=== PATIENT | male | born 1950 | race Caucasian/White ===

== ENCOUNTER 2021-07-20 19:24 | Inpatient (IN) | payer OTHER ==
[2021-07-20 21:17] LABS: Absolute Lymphocytes (CBC) 0.6 K/uL (0.7-4.9); Basophils % 0.6 % (0-1.3); Hematocrit 38.8 % (39.6-49.0); Lymphocytes % 9.9 % (15.3-44.8); MPV 9.2 fL (7.6-11.3); RBC Red Blood Cell Count 4.36 M/uL (4.33-5.43)
[2021-07-20 21:27] LABS: Protime INR 1.26
[2021-07-20 21:31] LABS: SARS-COV-2 RT PCR POSITIVE (NEGATIVE)
[2021-07-20 21:50] LABS: ALT/SGPT 33 U/L (12-78); AST/SGOT 60 U/L (15-37); Albumin 2.5 g/dL (3.4-5.0); Alkaline Phosphatase 38 U/L (45-117); BUN Blood Urea Nitrogen 24 mg/dL (7-18); Bicarbonate 28 mmol/L (21-32); Bilirubin Direct 0.2 mg/dL (0-0.2); Bilirubin Total 0.6 mg/dL (0.2-1.0); Ferritin 1090.6 ng/mL (26-388); Glucose Level 111 mg/dL (74-106); Lipase 51 U/L (73-393); Potassium 3.6 mmol/L (3.5-5.1); Protein, Total 6.7 g/dL (6.4-8.2); Sodium Level 133 mmol/L (136-145); Troponin (Emerg Dept Use Only) < 0.02 ng/mL (0.0-0.045)
[2021-07-20 21:58] LABS: Urine Bacteria <20 /HPF (NONE SEEN); Urine Mucus HEAVY /HPF (NONE SEEN); Urine RBC <5 /HPF (NONE SEEN)
--- NOTE | 2021-07-20 22:13 | EDPHYS ---
Physician Documentation [facility] Name: Roderick Dominguez Age: 71 yrs Sex: Male : 1950 Arrival Date: 07/20/2021 Time: 19:28 Bed 14 Private MD: ED Physician Daquan Pedro HPI: 07/20 20:16 This 71 yrs old Male presents to ER via Wheelchair with complaints of pm1 Breathing Difficulty, Covid positive. 20:16 The patient has shortness of breath at rest. Onset: The symptoms/episode began/occurred pm1 10 day(s) ago. Duration: The symptoms are continuous. The patient's shortness of breath is alleviated by application of supplemental oxygen, given in triage. Associated signs and symptoms: Pertinent positives: non-productive cough, decreased energy, poor appetite and PO intake. Severity of symptoms: in the emergency department the symptoms are worse. The patient has been recently seen by a physician: with similar presenting complaints, Patient was seen by Dr. Astorga yesterday and given remdesivir, but the patient's symptoms have worsened. 20:16 Patient with onset of Covid symptoms 10 days ago. Patient was diagnosed with Covid on pm1 07/17/[address] Martina Astorga and he was given Regeneron at that time. Patient followed up with Dr. Astorga yesterday and reported no improvement in his symptoms and was given remdesvir. Patient monitoring his pulse ox today and reported low O2 saturations. Patient is not on home oxygen. Historical: - Allergies: 19:57 No Known Allergies; kg - Home Meds: 19:57 aspirin 81 mg Oral chew 1 tab once daily [Active]; azithromycin 500 mg Oral tab 1 tab kg once daily [Active]; ivermectin 3 mg oral tab every 4 hours [Active]; Remdesivir [Active]; Simbacort [Active]; - PMHx: 19:57 Atrial fibrillation; Cardioversion- for A-fib; kg - PSHx: 19:57 Mitral valve replacement; kg - Immunization history:: Adult Immunizations not up to date, Client reports having NOT received the Covid vaccine. - Social history:: Smoking status: Patient/guardian denies using tobacco, but has a distant history of tobacco abuse, Patient uses alcohol, on a daily basis. ROS: 20:16 Eyes: Negative for injury, pain, redness, and discharge, ENT: Negative for injury, pm1 pain, and discharge, Neck: Negative for injury, pain, and swelling, Cardiovascular: Negative for chest pain, palpitations, and edema. 20:16 Abdomen/GI: Negative for abdominal pain, nausea, vomiting, diarrhea, and constipation, Back: Negative for injury and pain, MS/Extremity: Negative for injury and deformity, Skin: Negative for injury, rash, and discoloration, Neuro: Negative for headache, weakness, numbness, tingling, and seizure. 20:16 Constitutional: Positive for body aches, fatigue, malaise, poor PO intake. 20:16 Respiratory: Positive for cough, with no reported sputum, shortness of breath. Exam: 20:16 Constitutional: This is a well developed, well nourished patient who is awake, alert, pm1 and in no acute distress. Head/Face: Normocephalic, atraumatic. 20:16 Skin: Warm, dry with normal turgor. Normal color with no rashes, no lesions, and no evidence of cellulitis. MS/ Extremity: Pulses equal, no cyanosis. Neurovascular intact. Full, normal range of motion. 20:16 Eyes: Exam is negative for acute changes, Extraocular movements: no acute changes, Conjunctiva: no acute changes, no injection. 20:16 ENT: Exam is negative for acute changes, Mouth: Lips: normal, Oral mucosa: normal, pink and intact, moist. 20:16 Cardiovascular: Rate: normal, Rhythm: regular, Pulses: no pulse deficits are appreciated. 20:16 Respiratory: the patient does not display signs of respiratory distress, Respirations: normal, Breath sounds: rhonchi, that are mild, are scattered. 20:16 Abdomen/GI: Exam negative for acute changes, Inspection: obese Palpation: abdomen is soft and non-tender, in all quadrants. 20:16 Neuro: Exam negative for acute changes, Orientation: is normal, Mentation: is normal, Motor: is normal, moves all fours, Sensation: is normal, no obvious gross deficits. Vital Signs: 19:49 BP 104 / 67; Pulse 81; Resp 22; Temp 98.2; Pulse Ox 68% on R/A; Weight 99.79 kg (R); kg Height 6 ft. 0 in. (182.88 cm); Pain 0/10; 20:00 BP 115 / 72; Pulse 86; Resp 18; Pulse Ox 90% on 12 lpm NC; jb4 22:06 BP 134 / 73; Pulse 81; Resp 18; Temp 98.2; Pulse Ox 93% ; ds4 07/23 20:00 BP 145 / 77; Pulse 84; Resp 20; Pulse Ox 93% on NC; lh3 07/20 19:49 Body Mass Index 29.84 (99.79 kg, 182.88 cm) kg MDM: 07/20 20:02 Patient medically screened. pm1 21:56 Data reviewed: vital signs. pm1 22:11 Counseling: I had a detailed discussion with the patient and/or guardian regarding: the pm1 historical points, exam findings, and any diagnostic results supporting the discharge/admit diagnosis, lab results, radiology results, the need for further work-up and treatment in the hospital. 07/20 20:00 Order name: BMP pm1 07/20 20:00 Order name: Blood Culture Adult (2) pm1 07/20 20:00 Order name: C-Reactive Protein pm1 07/20 20:00 Order name: CBC with Diff pm1 07/20 20:00 Order name: D-Dimer pm1 07/20 20:00 Order name: Ferritin pm1 07/20 20:00 Order name: Flu pm07/20 20:00 Order name: LFT's pm07/20 20:00 Order name: Lactate pm07/20 20:00 Order name: Lipase pm07/20 20:00 Order name: PT-INR pm07/20 20:00 Order name: Procalcitonin pm07/20 20:00 Order name: Ptt, Activated pm07/20 20:00 Order name: Strep pm07/20 20:00 Order name: Troponin (emerg Dept Use Only); Complete Time: 21:55 pm1 07/20 20:00 Order name: Urine Microscopic Only; Complete Time: 22:01 pm1 07/20 20:00 Order name: Basic Metabolic Panel; Complete Time: 21:55 EDMS 07/20 20:00 Order name: Blood Culture EDMI 07/20 20:00 Order name: C-Reactive Protein; Complete Time: 21:55 EDMS 07/20 20:00 Order name: CBC with Automated Diff; Complete Time: 21:43 EDMS 07/20 20:00 Order name: D-Dimer; Complete Time: 21:43 EDMS 07/20 20:01 Order name: Ferritin; Complete Time: 21:55 EDMS 07/20 20:01 Order name: Liver (Hepatic) Function; Complete Time: 21:55 EDMS 07/20 20:01 Order name: Lactate; Complete Time: 22:44 EDMS 07/20 20:01 Order name: Lipase; Complete Time: 21:55 EDMS 07/20 20:01 Order name: Protime (+INR); Complete Time: 21:43 EDMS 07/20 20:01 Order name: Procalcitonin; Complete Time: 22:38 EDMS 07/20 20:01 Order name: PTT, Activated Partial Thromb; Complete Time: 21:43 EDMS 07/20 20:01 Order name: Group A Streptococcus Rapid Sc; Complete Time: 00:33 EDMS 07/20 20:00 Order name: CXR XRAY pm1 07/20 20:00 Order name: EKG; Complete Time: 20:01 pm1 07/20 20:00 Order name: Cardiac monitoring; Complete Time: 20:34 pm1 07/20 20:00 Order name: Droplet/Contact Precautions; Complete Time: 20:34 pm1 08 20:00 Order name: EKG - Nurse/Tech; Complete Time: 21:06 pm1 08 20:00 Order name: IV Start; Complete Time: 20:34 pm1 08 20:00 Order name: Labs collected and sent; Complete Time: 20:34 pm1 07/20 20:00 Order name: O2 Per Protocol; Complete Time: 20:34 pm1 07/20 20:00 Order name: O2 Sat Monitoring; Complete Time: 20:34 pm1 07/20 20:00 Order name: Urine Dipstick-Ancillary (obtain specimen); Complete Time: 21:31 pm1 07/20 21:31 Order name: COVID-19/FLU A+B; Complete Time: 21:43 EDMS 07/20 23:41 Order name: CONS Physician Consult EDMS 07/21 03:02 Order name: CBC with Automated Diff EDMS 07/21 03:15 Order name: Comprehensive Metabolic Panel EDMS 07/21 03:15 Order name: Phosphorus EDMS 07/21 03:15 Order name: C-Reactive Protein EDMS 07/21 03:15 Order name: Magnesium EDMS 07/21 03:15 Order name: Ferritin EDMS 07/21 03:16 Order name: Procalcitonin EDMS 07/21 04:32 Order name: Manual Differential EDMS 07/22 03:09 Order name: CBC with Automated Diff EDMS 07/22 03:28 Order name: Basic Metabolic Panel EDMS 07/22 07:53 Order name: Throat Culture EDMS 07/23 03:00 Order name: CBC with Automated Diff EDMS 07/23 03:03 Order name: Basic Metabolic Panel EDMS 07/23 14:09 Order name: Urine Dipstick-Ancillary EDMS Administered Medications: 22:38 Drug: SOLU-Medrol (methylPrednisoLONE) 125 mg Route: IVP; Site: left antecubital; jb4 23:15 Follow up: Response: No adverse reaction jb4 22:38 Drug: NS 0.9% 500 ml Route: IV; Rate: bolus; Site: left antecubital; jb4 23:15 Follow up: Response: No adverse reaction; IV Status: Completed infusion; IV Intake: jb4 500ml Disposition Summary: 07/20/21 22:12 Hospitalization Ordered Hospitalization Status: Inpatient Admission pm1 Provider: Ollie Lozano pm1 Condition: Stable pm1 Problem: new pm1 Symptoms: have improved pm1 Bed/Room Type: Standard pm1 Location: Intensive Care Unit(07/23/21 17:36) dw Room Assignment: 6-(07/23/21 17:36) dw Diagnosis - Pneumonia due to SARS-associated coronavirus pm1 - Hypoxia pm1 Forms: - Medication Reconciliation Form pm1 - SBAR form pm1 Signatures: Dispatcher [employer] EDMS Annetta Regalado RN RN dw Garcia, Cindy, RN RN cg Hardy Lowery, LUIS ANTONIO PATIENT DAY COORDINATOR pm1 Feng Valentino RN RN jb4 Lana Keenan RN RN kg Corrections: (The following items were deleted from the chart) 20:43 20:01 Influenza Screen (A ordered. EDMI EDMI 22:49 22:12 Telemetry/MedSurg (Inpatient) pm1 cg 22:49 22:12 pm1 cg 23:13 20:00 Ledesma ordered. pm1 jb4 07/23 22:49 BR ER HOLD cg dw 07/23 22:49 ERHOLD- cg dw
--- NOTE | 2021-07-20 22:13 | ER ---
Nurse's Notes [facility] Name: Roderick Dominguez Age: 71 yrs Sex: Male : 1950 Arrival Date: 07/20/2021 Time: 19:28 Bed 14 Private MD: Diagnosis: Pneumonia due to SARS-associated coronavirus;Hypoxia Presentation: 07/20 19:49 Chief complaint: Patient states: Low 02. 68% on RA in triage. Pt was diagnosed COVID + kg 07/16. He received Regeneron on 07/17, Remdesivir he started on 07/19, Azithromycin 07/19, Ivermectin 07/19, Simbacort 07/19. Coronavirus screen: Client denies travel out of the [place] in the last 14 days. At this time, unable to obtain information related to travel outside the [place] Client presents with at least one sign or symptom that may indicate coronavirus-19. Standard/surgical mask placed on the client. Provider contacted for isolation considerations. Ebola Screen: Patient negative for fever greater than or equal to 101.5 degrees Fahrenheit, and additional compatible Ebola Virus Disease symptoms Patient denies exposure to infectious person. Patient denies travel to an Ebola-affected area in the 21 days before illness onset. Initial Sepsis Screen: Does the patient meet any 2 criteria? No. Patient's initial sepsis screen is negative. Does the patient have a suspected source of infection? No. Patient's initial sepsis screen is negative. Risk Assessment: Do you want to hurt yourself or someone else? Patient reports no desire to harm self or others. Onset of symptoms was July 16, 2021. 19:49 Method Of Arrival: Wheelchair kg 19:49 Acuity: KEEGAN 3 kg Triage Assessment: 19:57 General: Appears in no apparent distress. Behavior is calm, cooperative, appropriate kg for age, quiet. Pain: Denies pain. Respiratory: Reports shortness of breath at rest on exertion since 07/16 cough that is non-productive, Onset: The symptoms/episode began/occurred gradually, the patient has moderate shortness of breath. Historical: - Allergies: 19:57 No Known Allergies; kg - Home Meds: 19:57 aspirin 81 mg Oral chew 1 tab once daily [Active]; azithromycin 500 mg Oral tab 1 tab kg once daily [Active]; ivermectin 3 mg oral tab every 4 hours [Active]; Remdesivir [Active]; Simbacort [Active]; - PMHx: 19:57 Atrial fibrillation; Cardioversion- for A-fib; kg - PSHx: 19:57 Mitral valve replacement; kg - Immunization history:: Adult Immunizations not up to date, Client reports having NOT received the Covid vaccine. - Social history:: Smoking status: Patient/guardian denies using tobacco, but has a distant history of tobacco abuse, Patient uses alcohol, on a daily basis. Screenin:03 Abuse screen: Denies threats or abuse. Denies injuries from another. Nutritional kg screening: No deficits noted. Tuberculosis screening: No symptoms or risk factors identified. Fall Risk None identified. Assessment: 20:00 General: Appears in no apparent distress. comfortable, Behavior is calm, cooperative, jb4 appropriate for age. Pain: Denies pain. Neuro: Level of Consciousness is awake, alert, obeys commands, Oriented to person, place, time, situation. Cardiovascular: Patient's skin is warm and dry. Respiratory: Airway is patent Respiratory effort is even, unlabored, Respiratory pattern is regular, symmetrical, Breath sounds are clear bilaterally. GI: No signs and/or symptoms were reported involving the gastrointestinal system. : No signs and/or symptoms were reported regarding the genitourinary system. EENT: No signs and/or symptoms were reported regarding the EENT system. Derm: Skin is intact, Skin is pink, warm \T\ dry. Musculoskeletal: Circulation, motion, and sensation intact. Range of motion: intact in all extremities. 21:00 Reassessment: Patient appears in no apparent distress at this time. Patient and/or jb4 family updated on plan of care and expected duration. Pain level reassessed. Patient is alert, oriented x 3, equal unlabored respirations, skin warm/dry/pink. 22:00 Reassessment: Patient appears in no apparent distress at this time. Patient and/or jb4 family updated on plan of care and expected duration. Pain level reassessed. Patient is alert, oriented x 3, equal unlabored respirations, skin warm/dry/pink. Vital Signs: 19:49 BP 104 / 67; Pulse 81; Resp 22; Temp 98.2; Pulse Ox 68% on R/A; Weight 99.79 kg (R); kg Height 6 ft. 0 in. (182.88 cm); Pain 0/10; 20:00 BP 115 / 72; Pulse 86; Resp 18; Pulse Ox 90% on 12 lpm NC; jb4 22:06 BP 134 / 73; Pulse 81; Resp 18; Temp 98.2; Pulse Ox 93% ; ds4 07/23 20:00 BP 145 / 77; Pulse 84; Resp 20; Pulse Ox 93% on NC; lh3 07/20 19:49 Body Mass Index 29.84 (99.79 kg, 182.88 cm) kg ED Course: 07/20 19:28 Patient arrived in ED. wm 19:51 Hardy Lowery NP is PHCP. pm1 19:51 Daquan Pedro MD is Attending Physician. pm1 19:57 Triage completed. kg 19:57 Arm band placed on. kg 20:03 Patient has correct armband on for positive identification. kg 20:13 Meg Mojica, RN is Primary Nurse. bs2 20:32 CXR XRAY In Process Unspecified. EDMS 22:12 Zander Lozano DO is Hospitalizing Provider. pm1 22:12 Hospitalizing Provider role handed off by Zander Lozano DO pm1 22:12 Ollie Lozano PA is Hospitalizing Provider. pm1 22:25 Feng Valentino, MIRANDA is Primary Nurse. jb4 07/23 20:40 No provider procedures requiring assistance completed. Inserted saline lock: 20 gauge lh3 in right forearm, using aseptic technique. Administered Medications: 07/20 22:38 Drug: SOLU-Medrol (methylPrednisoLONE) 125 mg Route: IVP; Site: left antecubital; jb4 23:15 Follow up: Response: No adverse reaction jb4 22:38 Drug: NS 0.9% 500 ml Route: IV; Rate: bolus; Site: left antecubital; jb4 23:15 Follow up: Response: No adverse reaction; IV Status: Completed infusion; IV Intake: jb4 500ml Intake: 23:15 IV: 500ml; Total: 500ml. jb4 Outcome: 22:12 Decision to Hospitalize by Provider. pm1 07/23 20:40 Admitted to ICU accompanied by nurse, via wheelchair, room 6, with oxygen, with chart. lh3 critical Instructed on the need for admit, Demonstrated understanding of 20:42 Patient left the ED. lh3 Signatures: Dispatcher [employer] EDMS Filippo Chua ds4 Hardy Lowery, LUIS ANTONIO GAME ADVISOR pm1 Feng Valentino, RN RN jb4 Lana Keenan, MIRANDA RN Ariana Schwab Bridget, RN RN bs2 Dayami Salmeron RN RN lh3
[2021-07-20] MEDS ORDERED: NA CHLORIDE 0.9% 500 ML ONE (22:54)
[2021-07-20] MEDS ORDERED: METHYLPREDNISOLONE 125 MG INJ ONE (22:54)
--- OUTSIDE RECORDS SUMMARY | 2021-07-20 22:57 | XMS REPORT | Continuity of Care Document ---
:1950 Author Organization [facility] t Address [address] [place] [address] Care Team Providers Name Role Phone CALMO Attending Clinician Unavailable Amrik Gonzalez Attending Clinician BRIGITTE Attending Clinician Unavailable Jordi Briggs Attending Clinician Nirmala Schuster Attending Clinician James Luque Attending Clinician Rula Goff Attending Clinician Problems Condition Condition Condition Status Onset Resolution Last Treating Co mments Source Name Details Category Date Date Treatment Clinician Date Z87.891 - Diagnosis Active 2019-112020-11-07 Memoria PERSONAL 01-04 08:24:00 l HISTORY OF Z87.891 00:01: Her feng NICOTINE D - PERSONAL 00 HISTORY OF NICOTINE D Active 11/03/2020 [facility] [place] LEFT LEG Diagnosis Active 2017-112019-02-20 M emoria 0-15 16:31:00 l LEFT LEG 08:00: Javier n 00 Active 09/11/2018 [facility] LEFT LEG Diagnosis Active 2017-112018-10-12 M emoria SX 0-15 16:21:00 l 09/11/18 LEFT LEG 08:00: Herm loco SX 00 09/11/18 Active 09/11/2018 [facility] M25.569 Diagnosis Active 2017-112018-09-05 Me moria 0-09 13:20:00 l M25.569 00:00: Miguelito 00 Active 09/05/[address] Diagnosis Active 2017-112018-10-03 Mem oria REFERRAL 0-03 21:15:[address] 00:00: Carmine REFERRAL 00 Active 08/30/2018 [facility] Miguelito R09.89 - Diagnosis Active 2018-04-27 M emoria OTH 04-27 17:11:00 l SYMPTOMS R09.89 - 00:01: Herm loco AND SIGNS OTH 00 INVOLVI SYMPTOMS AND SIGNS INVOLVI Active 04/27/2018 [facility] [place] V43.31 Diagnosis Active 2013-112014-11-30 Mem oria - 16:25:00 l V43.31 00:00: Carmine 00 Active 10/15/2014 [facility] V43.3 Diagnosis Active 2015-02-27 Mem oria 424.1 08:07:00 l 786.09 V43.3 Miguelito 427.31 424.1 786.09 427.31 Active [facility] HEART Diagnosis Active 2015-02-27 Mem oria VALVE 08:07:00 l REPLAC NEC HEART Simran nn VALVE REPLAC NEC Active [facility] V43.3 Diagnosis Active 2015-01-29 Mem oria 424.1 08:13:00 l 786.09 V43.3 Carmine 424.1 786.09 Active [facility] Strain of Problem 2019-03-25 Me moria right 14:42:09 l quadriceps Strain Boogie adan muscle, of right fascia and quadriceps tendon, muscle, initial fascia and encounter tendon, initial encounter 03/25/2019 [facility] Other tear Problem 2019-03-25 emoria of lateral 14:42:09 l meniscus, Other Javier n current tear of injury, lateral left knee, meniscus, initial current encounter injury, left knee, initial encounter 03/25/2019 [facility] Unilateral Problem 2019-03-25 M emoria primary 14:42:09 l osteoarthr Javier n itis, Unilateral right knee primary osteoarthr itis, right knee 03/25/2019 [facility] Chondromal Problem 2019-03-25 M emoria acia 14:42:09 l patellae, Miguelito left knee Chondromal acia patellae, left knee 03/25/2019 [facility] Fall (on) Problem 2019-03-19 Me moria (from) 15:35:50 l unspecifie Fall Javier perdomo d stairs (on) and steps, (from) initial unspecifie encounter d stairs and steps, initial encounter 03/19/2019 [place] intermediate card tender Problem 2019-03-19 Me moria (current) 15:35:50 l use of Long Carmine aspirin term (current) use of aspirin 03/19/2019 [place] Personal Problem 2019-03-19 Mem oria history of 15:35:50 l nicotine Personal Herm loco dependence history of nicotine dependence 03/19/2019 [place],[facility] Carm[place] Presence Problem 2019-03-19 Mem oria of 15:35:50 l xenogenic Presence Her feng heart of valve xenogenic heart valve 03/19/2019 [facility] Other Problem 2019-02-18 Memor ia nonspecifi 12:22:40 l c abnormal Other Simran nn finding of nonspecifi lung field c abnormal finding of lung field 02/18/2019 [facility] [place] 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 [place] 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 02/18/2019 [facility] [place] Presence Problem 2019-02-18 Mem oria of 12:22:40 l prosthetic Presence He rmann heart of valve prosthetic heart valve 02/18/2019 [facility] [place] Encounter Problem 2019-02-18 Me moria for 12:22:40 l screening Carmine for Encounter malignant for neoplasm screening of for respirator malignant y organs neoplasm of respirator y organs 02/18/2019 [facility] [place] Ex-smoker Problem Active 2019-07-03 Me moria (finding) 11:38:40 l Carmine Ex-smoker (finding) Active Problem 07/03/2019 [facility] JAY Farley,[facility] Bilateral Problem Active 2021-06-03 Me moria cataracts 21:27:06 l (disorder) Javier n Bilateral cataracts (disorder) Active Problem 06/03/2021 [facility], [facility] JAY Farley, JAY Lund,M [facility] Cervical Problem Active 2021-06-03 Mem oria radiculopa 21:27:06 l thy Cervical Javier n (disorder) radiculopa thy (disorder) Active Problem 06/03/2021 [facility] JAY Farley, JAY [place],[facility] Glaucoma Problem Active 2021-06-03 Mem oria suspect 21:27:06 l (context-d Glaucoma He rmann ependent suspect category) (context-d ependent category) Active Problem 06/03/2021 [facility] JAY Farley, JAY [place],[facility] History of Problem Active 2021-06-03 M emoria - atrial 21:27:06 l fibrillati History Her feng on of - (context-d atrial ependent fibrillati category) on (context-d ependent category) Active Problem 06/03/2021 [facility] JAY Farley, JAY [place],[facility] History of Problem Active 2021-06-03 M emoria - surgery 21:27:06 l (context-d History Her feng ependent of - category) surgery (context-d ependent category) Active Problem 06/03/2021 [facility], JAY [place],[facility] History of Problem Active 2021-06-03 M emoria aortic 21:27:06 l valve History Carmine replacemen of aortic t valve (situation replacemen ) t (situation ) Active Problem 06/03/2021 [facility] JAY aFrley, JAY [place],[facility] History of Problem Active 2021-06-03 M emoria malignant 21:27:06 l neoplasm History Simran nn of skin of (situation malignant ) neoplasm of skin (situation ) Active Problem 06/03/2021 [facility] JAY Farley, JAY [place],[facility] History of Problem Active 2021-06-03 M emoria polyp of 21:27:06 l colon History Miguelito (situation of polyp ) of colon (situation ) Active Problem 06/03/2021 [facility] JAY Farley, JAY [place],[facility] Mild Problem Active 2021-06-03 Memor ia chronic 21:27:06 l obstructiv Mild Javier n e chronic pulmonary obstructiv disease e (disorder) pulmonary disease (disorder) Active Problem 06/03/2021 [facility], [place],[facility] JAY Farley, JAY Lund,[facility] Patient Problem Active 2021-06-03 Andry harvey encounter 21:27:06 l status Patient Carmine (finding) encounter status (finding) Active Problem 06/03/2021 [facility], JAY [place],[facility] Prediabete Problem Active 2021-06-03 M emoria s 21:27:06 l (finding) Carmine Prediabete s (finding) Active Problem 06/03/2021 [facility], JAY [place],[facility] Screening Problem Active 2021-06-03 Me moria status 21:27:06 l (finding) Miguelito Screening status (finding) Active Problem 06/03/2021 [facility], [place],[facility] JAY Farley, JAY Lund,[facility] Subjective Problem Active 2021-06-03 M emoria carotid 21:27:06 l bruit Miguelito (finding) Subjective carotid bruit (finding) Active Problem 06/03/2021 [facility], [place],M JAY Farley, JAY Lund,[facility] Ex-cigaret Problem Active 2021-06-03 M emoria te smoker 21:27:06 l (finding) Miguelito Ex-cigaret te smoker (finding) Active Problem 06/03/2021 [facility], JAY [place] Hyperchole Problem Active 2021-06-03 M emoria sterolemia 21:27:06 l (disorder) Javier n Hyperchole sterolemia (disorder) Active Problem 06/03/2021 [facility], J[facility] [place] Knee pain Knee pain Problem Active [facility] [place] [facility] Viral Problem Active 2019-11-06 Memor ia screening 22:11:38 l status Viral Miguelito (finding) screening status (finding) Active Problem 11/06/2019 [facility], JAY [place] Strain of Problem Active 2019-07-03 Me moria quadriceps 11:38:40 l tendon Strain Carmine (disorder) of quadriceps tendon (disorder) Active Problem 07/03/2019 [facility] Edema of Problem Active 2019-03-25 Mem oria lower 14:42:09 l extremity Edema of Her feng (finding) lower extremity (finding) Active Problem 03/25/2019 [facility], Romulo Lund,[facility] Knee joint Problem Active 2019-03-25 M emoria effusion 14:42:09 l (disorder) Knee Javier n joint effusion (disorder) Active Problem 03/25/2019 [facility], Romulo Lund,[facility] Knee pain Problem Active 2019-03-25 Me moria (finding) 14:42:09 l Knee Miguelito pain (finding) Active Problem 03/25/2019 [facility], [place],[facility] Medical Problem Active 2019-03-25 Andry harvey examinatio 14:42:09 l ns/reports Medical Her feng status examinatio (finding) ns/reports status (finding) Active Problem 03/25/2019 [facility], Romulo Lund,[facility] Dyspnea on Problem Active 2021-06-03 M emoria exertion 21:27:06 l (finding) Dyspnea Herm loco on exertion (finding) Active Problem 06/03/2021 [facility], JAY [place] Immunizati Problem Active 2021-06-03 M emoria on due 21:27:06 l (finding) Carmine Immunizati on due (finding) [facility] [place] Multiple Problem Active 2021-06-03 Mem oria nodules of 21:27:06 l lung Multiple Javier n (finding) nodules of lung (finding) Active [facility]03/[facility] [place] Onychomyco Problem Active 2021-06-03 M emoria sis 21:27:06 l (disorder) Javier n Onychomyco sis (disorder) Active Problem 06/03/2021 [facility], [facility] [place] Wrist pain Wrist pain Problem Active [facility] [place] [facility] Pulmonary Problem Active 2019-11-06 Me moria emphysema 22:11:38 l (disorder) Javier perdomo Pulmonary emphysema (disorder) Active Problem 11/06/2019 [facility] Rupture of Rupture of Problem Active [facility] left left ity of quadriceps quadriceps [place] tendon, tendon, Physici initial initial ans encounter encounter History of Past Illness Condition Condition Condition Status Onset Resolution Last Treating Co mments Source Name Details Category Date Date Treatment Clinician Date Strain of Problem 2018-2019-07-03 2019-07-03 Memoria left 1- 11:38:40 11:38:40 l quadriceps Strain 04:11: Boogie adan muscle, of left 57 fascia and quadriceps tendon, muscle, subsequent fascia and encounter tendon, subsequent encounter 12/17/2018 07/03/2019 [facility] Pain in Problem 2017-112019-03-25 2019-03-25 Memoria left knee 0-13 14:42:09 14:42:09 l Pain in 03:37: Miguelito left knee 22 09/09/2018 03/25/2019 [facility] Contusion Problem 2017-112019-03-19 2019-03-19 Memoria of left 0-03 15:35:50 15:35:50 l thigh, 05:00: Miguelito initial Contusion 00 encounter of left thigh, initial encounter 08/30/2018 03/19/2019 [facility] Strain of Problem 2017-112019-03-19 2019-03-19 Memoria unspecifie 0-03 15:35:50 15:35:50 l d Strain 05:00: Miguelito quadriceps of 00 muscle, unspecifie fascia and d tendon, quadriceps initial muscle, encounter fascia and tendon, initial encounter 08/30/2018 03/19/2019 [facility] Allergies, Adverse Reactions, Alerts Allergy Allergy Status Severity Reaction(s) Onset Inactive Treating Comm ents Source Name Type Date Date Clinician Food Food Active Memoria Lactose Lactose l Intolera Intolera Javier perdomo nce nce (Restric (Restric ts ts Milk/Mil Milk/Mil k k Products Products ) ) Social History Social Habit Start Date Stop Date Quantity Comments Source Social History 2018-04-20 2018-04-20 Belinda antonio 15:42:00 15:42:00 Medications Ordered Filled Start Stop Current Ordering Indication Dosage Frequency Signature Comments Components Source Medication Medication Date Date Medication? Clinician (SIG) Name Name ciclopirox Yes 1 appl, Andry harvey 80 MG/ML 6- TOP, l Topical 17:03: Daily, X Javier n Solution 00 48 week, # [Penlac 9.9 ml, 11 Nail Refill(s), Lacquer] Pharmacy: [facility] #[id number], 182.88, cm, 05/15/20 10:33:00 CDT, Height, 100.653, kg, 05/15/20 10:33:00 CDT, Weight ciclopirox Yes 1 appl, Andry harvey 80 MG/ML 6- TOP, l Topical 01:27: Daily, X Javier n Solution 00 48 week, # [Penlac 9.9 ml, 11 Nail Refill(s), Lacquer] Pharmacy: [facility] #[id number], 182.88, cm, 05/15/20 10:33:00 CDT, Height, 100.653, kg, 05/15/20 10:33:00 CDT, Weight Cyclobenzap Cyclobenzap Yes NOEL BRIGITTE Q0.3333D TAKE 1 Univers rine HCl - rine HCl - 4-02 M.D. TABLET 3 ity of 10 MG Oral 10 MG Oral 00:00: TIMES [place] Tablet Tablet 00 DAILY Physici NEEDED. ans Cyclobenzap Cyclobenzap 2017-11 Yes NOEL BRIGITTE 1 Q0.3333D TAKE 1 Univers rine HCl - rine HCl - 2-11 M.D. TABLET 3 ity of 10 MG Oral 10 MG Oral 00:00: TIMES [place] Tablet Tablet 00 DAILY PRN Physic i muscle ans spasms Saline 2017-11 No Notes: Memoria Flush 0.9% 0-03 (Same as: l 21:30: BD Carmine 00 Posiflush) Acetaminoph 2017-11 No 1 tab, PO, Memoria en 300 MG / 0-03 Q4H, PRN l Codeine 19:12: Pain, X 7 Simran nn Phosphate 00 day, # 42 15 MG Oral tab, 0 Tablet Refill(s) Acetaminoph No 1 -2 tab, M emoria en 300 MG / 9-27 PO, l Codeine 20:16: Bedtime, Javier n Phosphate 00 As needed 30 MG Oral for pain, Tablet X 3 day, # [Tylenol 6 tab, 0 with Refill(s) Codeine #3] Aspirin 81 2018-0 Yes 81 mg = 1 Me moria MG Enteric 5-24 tab, PO, l Coated 15:26: Daily, # Carmine Tablet 00 90 tab, 3 Refill(s) Immunizations Ordered Immunization Filled Immunization Date Status Commen ts Source Name Name pneumococcal 2017-01-10 Completed [facility] 23-valent vaccine 00:00:00 Carmine pneumococcal 2017-01-10 Completed [facility] 13-valent vaccine 00:00:00 Carmine pneumococcal 2016-01-05 Completed [facility] 13-valent vaccine 00:00:00 Carmine pneumococcal 2016-01-05 Completed [facility] 23-valent vaccine 00:00:00 Miguelito zoster vaccine live 2014-01-01 Completed Memor ial 00:00:00 Carmine tetanus-diphtheria 2012-12-25 Completed Memori al toxoids 00:00:00 Miguelito diphtheria/pertussis 2012-12-25 Completed Andry rial , acel/tetanus adult 00:00:00 Herm loco Vital Signs Vital Name Observation Time Observation Value Comments Source Height 2021-05-27 14:47:00 182.88 cm [facility] Weight 2021-05-27 14:47:00 [facility] BMI Calculated 2021-05-27 14:47:00 Memori al Miguelito Systolic (mm Hg) 2021-05-27 14:47:00 Andry rial Carmine Diastolic (mm Hg) 2021-05-27 14:47:00 Mem orial Miguelito Heart Rate 2021-05-27 14:47:00 [facility] Carmine Systolic (mm Hg) 2020-05-15 15:33:00 Andry rial Miguelito Diastolic (mm Hg) 2020-05-15 15:33:00 Mem orial Miguelito Heart Rate 2020-05-15 15:33:00 [facility] Miguelito Temperature Oral (F) 2020-05-15 15:33:00 98.5 F [facility] Height 2020-05-15 15:33:[address] [facility] Weight 2020-05-15 15:33:00 [facility] Miguelito BMI Calculated 2020-05-15 15:33:00 Memori al Carmine Systolic (mm Hg) 2019-10-18 20:32:00 Andry rial Carmine Diastolic (mm Hg) 2019-10-18 20:32:00 Mem orial Miguelito Heart Rate 2019-10-18 20:32:00 [facility] Carmine Temperature Oral (F) 2019-10-18 20:32:00 98.2 F [facility] Miguelito Height 2019-04-20 19:17:00 182.88 cm [facility] Carmine BMI Calculated 2019-04-20 19:17:00 Memori al Miguelito Weight 2019-04-20 19:17:00 [facility] Miguelito Systolic (mm Hg) 2019-04-20 19:17:00 Andry rial Miguelito Diastolic (mm Hg) 2019-04-20 19:17:00 Mem orial Miguelito Temperature Oral (F) 2019-04-20 19:17:00 98.0 F [facility] Carmine Heart Rate 2019-04-20 19:17:00 [facility] Miguelito Heart Rate 2018-08-31 01:21:00 [facility] Miguelito Respitory Rate 2018-08-31 01:21:00 Memori al Miguelito Systolic (mm Hg) 2018-08-31 01:21:00 Andry rial Carmine Diastolic (mm Hg) 2018-08-31 01:21:00 Mem orial Miguelito Temperature Oral (F) 2018-08-31 01:21:00 98.0 F [facility] Carmine Temperature Oral (F) 2018-08-30 23:02:00 97.8 F [facility] Carmine Heart Rate 2018-08-30 23:02:00 [facility] Carmine Respitory Rate 2018-08-30 23:02:00 Memori al Carmine BMI Calculated 2018-08-30 19:58:00 Memori al Miguelito Weight 2018-08-30 19:58:00 [facility] Carmine Temperature Oral (F) 2018-08-30 19:58:00 98.1 F [facility] Miguelito Height 2018-08-30 19:58:00 182.88 cm [facility] Miguelito Respitory Rate 2018-08-30 19:58:00 Memori al Carmine Heart Rate 2018-08-30 19:58:00 [facility] Carmine Systolic (mm Hg) 2018-08-30 19:58:00 Andry rial Carmine Diastolic (mm Hg) 2018-08-30 19:58:00 Mem orial Carmine BMI Calculated 2018-08-30 18:15:00 Memori al Carmine Weight 2018-08-30 18:15:00 [facility] Carmine Height 2018-08-30 18:15:00 182.88 cm [facility] Miguelito Systolic (mm Hg) 2018-08-30 18:15:00 Andry rial Miguelito Diastolic (mm Hg) 2018-08-30 18:15:00 Mem orial Miguelito Heart Rate 2018-08-30 18:15:00 [facility] Miguelito Temperature Oral (F) 2018-08-30 18:15:00 98.5 F [facility] Miguelito Height 2018-08-24 18:57:00 182.88 cm [facility] Carmine BMI Calculated 2018-08-24 18:57:00 Memori al Miguelito Weight 2018-08-24 18:57:00 [facility] Miguelito Heart Rate 2018-08-24 18:57:00 [facility] Carmine Temperature Oral (F) 2018-08-24 18:57:00 97.9 F [facility] Miguelito Systolic (mm Hg) 2018-08-24 18:57:00 Andry rial Carmine Diastolic (mm Hg) 2018-08-24 18:57:00 Mem orial Miguelito Temperature Oral (F) 2018-04-20 15:21:00 97.8 F [facility] Miguelito Heart Rate 2018-04-20 15:21:00 [facility] Miguelito Systolic (mm Hg) 2018-04-20 15:21:00 Andry rial Carmine Diastolic (mm Hg) 2018-04-20 15:21:00 Mem orial Miguelito BMI Calculated 2018-04-20 15:21:00 Memori al Miguelito Weight 2018-04-20 15:21:00 [facility] Carmine Height 2018-04-20 15:21:00 182.88 cm [facility] Carmine Height 2015-02-27 14:25:00 182.88 cm [facility] Carmine BMI Calculated 2015-02-27 14:25:00 Memori al Miguelito Weight 2015-02-27 14:25:00 [facility] Miguelito Weight 2015-01-29 18:39:00 [facility] Carmine Height 2015-01-29 18:39:00 182.88 cm [facility] Miguelito BMI Calculated 2015-01-29 18:39:00 Memori al Miguelito Height 2014-12-31 17:12:00 182.88 cm [facility] Carmine BMI Calculated 2014-12-31 17:12:00 Memori al Carmine Weight 2014-12-31 17:12:00 [facility] Carmine BMI Calculated 2014-12-03 16:21:00 Memori al Miguelito Weight 2014-12-03 16:21:00 [facility] Miguelito Height 2014-12-03 16:21:00 182.88 cm [facility] Miguelito BMI Calculated 2014-10-29 14:58:00 Memori al M[place]ul[place] Weight 2014-10-29 14:58:00 [facility] Miguelito Height 2014-10-29 14:58:00 182.88 cm [facility] Miguelito Procedures Procedure Date / Time Performing Clinician Source Performed [U] XRAY KNEE 1 OR 2 VWS 2018-09-15 00:00:00 [facility] LEFT [id number] Physicians MR Knee wo contrast 2018-09-05 00:00:00 [facility] [id number] Physicians Colonoscopy 2016-08-09 05:00:00 [facility] Aortic valve replacement 2014-09-09 05:00:00 Mem orial Miguelito and replacement of ascending aorta Miscellaneous [facility] operations<sup>1</sup> Encounters Start End Encounter Admission Attending Care Care Encounter Source Date/Time Date/Time Type Type Clinicians Facility Department ID 2021-06-30 2021-06-30 Outpatient CALSC CARRIE MELGOZA [id number] Carrie 00:00:00 00:00:00 Seybol d 2021-05-31 2021-06-01 Between nullFlavo [facility] [id number] Memoria 16:55:23 16:55:23 Visit r Primary 16 l [facility] 2021-05-31 2021-06-01 Outpatient [facility] [id number] 11:55:23 11:55:23 16 2021-05-27 2021-05-28 Outpatient nullFlavo [facility] [id number] Memoria 14:45:00 04:59:59 r Primary 06 l [facility] 2021-05-27 2021-05-27 Outpatient Chris Gonzalez [facility] [id number] 09:45:00 23:59:59 Amrik 06 2021-05-27 2021-05-27 Outpatient [facility] [id number] Memoria 09:45:00 09:45:00 06 [facility] 2020-11-10 2020-11-11 Between nullFlavo [facility] [id number] Memoria 16:32:56 16:32:56 Visit r Primary 15 l [facility] 2020-11-10 2020-11-11 Outpatient [facility] [id number] 10:32:56 10:32:56 15 2020-11-07 2020-11-08 [place] [id number] Memoria 14:14:00 05:59:00 Services r Outpatient [address] [facility] 2020-11-07 2020-11-07 Outpatient Carlos, Chris [facility] [id number] 08:14:00 23:59:00 2020-07-01 2020-07-01 Appointcharlee BRIGGS [facility] Orthopedics [id number] Univers 16:30:00 16:30:00 t; NOEL BRIGGS M.D. [facility] Mike COHEN [facility] 2020-05-19 2020-05-20 Between nullFlavo [facility] [id number] Memoria 01:10:11 01:10:11 Visit r Primary 14 l [facility] 2020-05-19 2020-05-20 Between nullFlavo [facility] [id number] Memoria 01:09:27 01:09:27 Visit r Primary 13 l [facility] 2020-05-18 2020-05-19 Outpatient [facility] [id number] 20:10:11 20:10:11 14 2020-05-18 2020-05-19 Outpatient [facility] [id number] 20:09:27 20:09:27 13 2020-05-15 2020-05-16 Outpatient nullFlavo [facility] [id number] Memoria 14:45:00 04:59:59 r Primary 05 l [facility] 2020-05-15 2020-05-15 Outpatient Carlos, Chris [facility] [id number] 09:45:00 23:59:59 2020-05-15 2020-05-15 Outpatient MHIE [facility] [id number] Memoria 09:45:00 09:45:00 05 [facility] 2019-11-03 2019-11-04 Between nullFlavo MG [id number] Memoria 14:56:22 14:56:22 Visit r Primary 12 l [facility] 2019-11-03 2019-11-04 Outpatient [facility] MG [id number] 08:56:22 08:56:22 12 2019-10-30 2019-10-31 Outpt Diag nullFlavo [facility] [id number] Memoria 16:05:00 05:59:00 Services r Outpatient 02 l Imaging [facility] 2019-10-30 2019-10-30 Outpatient Carlos, Chris [facility] [id number] 10:05:00 23:59:00 Amrik 2019-10-20 2019-10-21 Between nullFlavo MG [id number] Memoria 20:40:37 20:40:37 Visit r Primary 11 l [facility] 2019-10-20 2019-10-21 Outpatient MG MG [id number] 14:40:37 14:40:37 2019-10-18 2019-10-19 [place] [id number] Memoria 20:30:00 05:59:59 r Primary 04 l [facility] 2019-10-18 2019-10-18 Outpatient Chris Gonzalez [facility] [id number] 14:30:00 23:59:59 2019-10-18 2019-10-18 Outpatient MHIE IE [id number] Memoria 14:30:00 14:30:00 04 [facility] 2019-07-03 2019-07-03 AppointALMITA [facility] [id number] [facility] 13:15:00 13:15:00 t; NOEL BRIGGS M.D. - [place] Lakia M.D. [place] [facility] 2019-05-01 2019-05-01 ALMITA [facility] [id number] [facility] 11:30:00 11:30:00 t; NOEL BRIGGS M.D. - [place] Dorman M.D. [place] [facility] 2019-04-25 2019-04-26 Between nullFlavo MG [id number] Memoria 14:02:44 14:02:44 Visit r Primary 10 [facility] 2019-04-25 2019-04-26 Outpatient [facility] MG [id number] 09:02:44 09:02:44 10 2019-04-20 2019-04-21 Outpatient nullFlavo [facility] [id number] Memoria 19:30:00 04:59:59 r Primary 03 [facility] 2019-04-20 2019-04-20 Outpatient Chris Gonzalez [facility] [id number] 14:30:00 23:59:59 Amrik 03 2019-04-20 2019-04-20 Outpatient [facility] [id number] Memoria 14:30:00 14:30:00 03 [facility] 2019-02-20 2019-03-22 OP Therapy nullFlavo SMR [id number] Memoria 16:00:00 04:59:00 Patients r [place] 08 [facility] 2019-02-20 2019-03-21 Outpatient Noel Briggs [id number] 11:00:00 23:59:00 Jordi Aranda.[id number]. [id number] 3.615.57 5.57 2019-02-27 2019-02-27 [facility] [id number] Univers 13:30:00 13:30:00 t; NOEL BRIGGS M.D. at [facility] Mike COHEN [facility] 2019-01-17 2019-02-16 OP Therapy nullFlavo SMR [id number] Memoria 16:00:00 04:59:00 Patients r [place] 07 l [facility] 2019-01-17 2019-02-15 Outpatient Noel Briggs 2.16.840. 2.16.840. 1. [id number] 10:00:00 23:59:00 Jordi Jordan860507. [id number] 07 3.615.57 5.57 2019-02-13 2019-02-13 AppointALMITA [facility] UTP [id number] Univers 13:45:00 13:45:00 t; NOEL BRIGGS M.D. i Aurelia M.D. [facility] 2018-12-18 2019-01-17 OP Therapy nullFlavo SMR [id number] Memoria 17:00:00 05:59:00 Patients r [place] 06 l [facility] 2018-12-18 2019-01-16 Outpatient Noel Briggs 2.16.840. 2.16.840. 1. [id number] 11:00:00 23:59:00 Jordi [id number]. [id number] 06 3.615.57 5.57 2019-01-09 2019-01-09 Appoint[facility] [id number] Univers 10:45:00 10:45:00 t; NOEL BRIGGS M.D. at [facility] carlos COHEN M.D. [facility] 2019-01-02 2019-01-02 [facility] [id number] Univers 09:00:00 09:00:00 t; NOEL BRIGGS M.D. i Aurelia M.D. [facility] 2018-11-14 2018-12-14 OP Therapy nullFlavo SMR [id number] Memoria 16:00:00 05:59:00 Patients r [place] 05 l Marques [facility] 2018-11-14 2018-12-13 Outpatient Noel Briggs 2.16.840. 2.16.840. 1. [id number] 10:00:00 23:59:00 Jordi Aranda.[id number]. [id number] 05 3.615.57 5.57 2018-12-05 2018-12-05 [facility] [id number] Univers 09:00:00 09:00:00 t; NOEL BRIGGS M.D. at [facility] Mike COHEN [facility] 2018-10-12 2018-11-11 OP Therapy nullFlavo SMR [id number] Memoria 21:30:00 05:59:00 Patients r [place] 04 l Marques Gutier[facility] 2018-10-12 2018-11-10 Outpatient Noel Briggs 2.16.840. 2.16.840. 1. [id number] 15:30:00 23:59:00 [place] [id number]. [id number] 04 3.615.57 5.57 2018-11-07 2018-11-07 Appointmen [facility] [id number] Univers 09:45:00 09:45:00 t; NOEL BRIGGS M.D. at [facility] carlos COHEN M.D. [facility] 2018-10-10 2018-10-10 [facility] [id number] Univers 09:15:00 09:15:00 t; NOEL BRIGGS M.D. at [facility] carlos COHEN M.D. [facility] 2018-09-26 2018-09-26 [facility] [id number] Univers 10:15:00 10:15:00 t; NOEL BRIGGS M.D. at [facility] carlos COHEN M.D. [facility] 2018-09-15 2018-09-15 Appointmen [facility] [id number] Univers 11:00:00 11:00:00 t; NOEL BRIGGS M.D. at [facility] carlos COHEN M.D. [facility] 2018-09-11 2018-09-11 Appointmen [facility] [id number] Univers 08:00:00 08:00:00 t; NOEL BRIGGS M.D. [facility] carlos COHEN M.D. [facility] 2018-09-05 2018-09-06 Outpatient [facility] [id number] Memoria 18:13:00 04:59:00 [facility] 03 l [facility] 2018-09-05 2018-09-05 Outpatient Noel Briggs [facility] [id number] 13:13:00 23:59:00 [place] 03 2018-09-05 2018-09-05 Appointmen [facility] [id number] Univers 10:00:00 10:00:00 t; NOEL BRIGGS M.D. at [facility] carlos COHEN M.D. [place] [facility] 2018-08-30 2018-08-31 Outpatient nullFlavo [facility] [id number] Memoria 18:15:00 04:59:59 r Primary 02 [facility] 2018-08-30 2018-08-31 Emergency nullFlavo [facility] [id number] Memoria 19:50:00 01:27:00 r Carmine 02 [facility] 2018-08-30 2018-08-30 Outpatient Carlos, Chris [facility] [id number] 13:15:00 23:59:59 Amrik 02 2018-08-30 2018-08-30 Outpatient Malya, MHPL MHPL [id number] 14:50:00 20:27:00 Ta Silvestre 2018-08-30 2018-08-30 Outpatient MHIE MHIE [id number] Memoria 13:15:00 13:15:00 02 [facility] 2018-08-24 2018-08-25 Outpatient nullFlavo [facility] Urgent 3 [id number] Memoria 18:45:00 04:59:59 r Care 01 [facility] 2018-08-24 2018-08-24 Outpatient Melincoff, MHMG MG [id number] 13:45:00 23:59:59 Yaya Ramirez 01 2018-08-24 2018-08-24 Outpatient MHIE MHIE [id number] Memoria 13:45:00 13:45:00 01 [facility] 2018-08-01 2018-08-02 Outpt Diag nullFlavo [facility] [id number] Memoria 22:08:00 04:59:00 Services r Outpatient 01 [facility] 2018-08-01 2018-08-01 Outpatient Carlos, Chris [facility] [id number] 17:08:00 23:59:00 Amrik 2018-07-27 2018-07-29 Phone nullFlavo [facility] [id number] Memoria 15:33:00 04:59:59 Message r Primary 02 [facility] 2018-07-27 2018-07-28 Outpatient MHMG MHMG [id number] 10:33:00 23:59:59 02 2018-07-18 2018-07-20 Phone nullFlavo [facility] [id number] Memoria 21:34:00 04:59:59 Message r Primary 01 l [facility] 2018-07-18 2018-07-19 Outpatient MHMG MHMG [id number] 16:34:00 23:59:59 2018-05-04 2018-05-06 Outside nullFlavo MG [id number] Memoria 15:05:00 04:59:59 Medical r Primary 00 l Records [facility] 2018-05-04 2018-05-05 Outpatient MHMG MG [id number] 10:05:00 23:59:59 2018-04-27 2018-04-28 Outpt Diag nullFlavo [facility] [id number] Memoria 22:02:00 04:59:00 Services r Outpatient 00 l [facility] 2018-04-27 2018-04-27 [id number] 17:02:00 23:59:00 2018-04-20 2018-04-21 Outpatient nullFlavo [facility] [id number] Memoria 15:15:00 04:59:59 r Primary 00 l [facility] 2018-04-20 2018-04-20 Outpatient Carlos, Chris [facility] [id number] 10:15:00 23:59:59 2018-04-20 2018-04-20 Outpatient MHIE IE [id number] Memoria 10:15:00 10:15:00 00 sofy HymanMiguelito 2015-02-26 2015-03-28 nullFlavo [facility] [id number] Memoria 12:00:00 04:59:00 Recurring ivan Reyez [facility] 2015-02-26 2015-03-27 Outpatient Shell 2.16.840. 2.16.840.1. [id number] 07:00:00 23:59:00 Carlie Horta [id number]. [id number] 3.615.0.1 5.0.212 80 5007-03-02 2015-02-26 nullFlavo [facility] [id number] Memoria 13:00:00 04:59:00 Recurring ivan Reyez [facility] 2015-01-27 2015-02-25 Outpatient Goff, 2.16.840. 2.16.840.1. [id number] 07:00:00 23:59:00 Carlie Rula [id number]. [id number] 02 3.615.0.1 5.0.223 24 4702-01-31 2015-01-27 nullFlavo [facility] [id number] Memoria 13:00:00 05:59:00 Recurring ivan Farley [facility] 2014-12-28 2015-01-26 Outpatient Goff, 2.16.840. 2.16.840.1. [id number] 07:00:00 23:59:00 Carlie Rula [id number]. [id number] 01 3.615.0.1 5.0.364 09 0700-01-01 2014-12-28 nullFlavo [facility] [id number] Memoria 13:00:00 05:59:00 Recurring ivan Farley [facility] 2014-11-28 2014-12-27 Outpatient Goff, 2.16.840. 2.16.840.1. [id number] 07:00:00 23:59:00 Carlie Rula [id number]. [id number] 3.615.0.1 5.0.165 43 9053-12-02 2014-11-28 nullFlavo [facility] [id number] Memoria 14:39:00 05:59:00 Recurring ivan Farley [facility] 2014-10-29 2014-11-27 Outpatient Goff, 2.16.840. 2.16.840.1. [id number] 08:39:00 23:59:00 Carlie Rula [id number]. [id number] 3.615.0.1 5.0.101 01 Results Test Description Test Time Test Comments Results Result Comments Source CHEM PANEL 2021-05-27 102 [facility] 15:24:00 CHEM PANEL 2021-05-27 19 [facility] nn 15:24:00 CHEM PANEL 2021-05-27 0.91 [facility] 15:24:00 CHEM PANEL 2021-05-27 84 [facility] 15:24:00 CHEM PANEL 2021-05-27 98 [facility] 15:24:00 CHEM PANEL 2021-05-27 137 [facility] 15:24:00 CHEM PANEL 2021-05-27 4.7 [facility] 15:24:00 CHEM PANEL 2021-05-27 105 [facility] 15:24:00 CHEM PANEL 2021-05-27 28 [facility] 15:24:00 CHEM PANEL 2021-05-27 8.9 [facility] nn 15:24:00 CHEM PANEL 2021-05-27 6.8 [facility] 15:24:00 CHEM PANEL 2021-05-27 4.0 [facility] 15:24:00 CHEM PANEL 2021-05-27 2.8 [facility] 15:24:00 CHEM PANEL 2021-05-27 1.4 [facility] nn 15:24:00 CHEM PANEL 2021-05-27 0.4 [facility] 15:24:00 CHEM PANEL 2021-05-27 42 [facility] 15:24:00 CHEM PANEL 2021-05-27 14 [facility] 15:24:00 CHEM PANEL 2021-05-27 13 [facility] 15:24:00 HEMATOLOGY 2021-05-27 6.2 [facility] 15:24:00 HEMATOLOGY 2021-05-27 4.46 [facility] nn 15:24:00 HEMATOLOGY 2021-05-27 13.9 [facility] nn 15:24:00 HEMATOLOGY 2021-05-27 40.6 [facility] nn 15:24:00 HEMATOLOGY 2021-05-27 91.0 [facility] nn 15:24:00 HEMATOLOGY 2021-05-27 15:24:00 Test Item Value Reference Range Interpretation Comme nts MCH (test code = MCH) 31.2 pg 27.0-33.0 [facility] HyllcppDUSCMZMYCF4664-95-95 15:24:0034.2[facility] HermannHEMATOLOGY 2021-05-27 15:24:0013.7[facility] AhnmdtdJRNHTYCNWN5018-28-42 15:24:07089Hrkdhwqv BadiknuXBYPGUUJBP0398-47-38 15:24:0012.0[facility] TltehroPJLSAUZCXS8723-52-04 15:24:113358Jyesjgik RmdswndHXPZNNRUME5374-91-93 15:24:283807Pzpokicx Miguelito TOMYZMGHGZ5111-05-00 15:24:17875Iybmtskt LcvgccaJSFLVNFRGM9602-25-23 15:24:21476 [facility] YjjkbouKTASGLIQBC1370-25-29 15:24:73033Nohnqqdn HermannHEMATOLOGY 2021-05-27 15:24:0059[facility] BqhqqgyWLWZFZTVVZ1948-75-90 15:24:0027.6[facility] AfmvdpcGZEKLTXMHU9603-34-26 15:24:007.1[facility] NiapqdxJAKENXKLMN4176-06-96 15:24:004.5[facility] WcrkyuvYZQTSFPUMA8617-77-10 15:24:001.8[facility] Miguelito WZMFLW8831-83-03 15:24:31590Eeznwtis JucpcjeXDXHBI3477-80-36 15:24:0053[facility] VgnexhsGIWYWS3653-17-14 15:24:0083[facility] FvstfluOEZUNN5124-32-87 15:24:69383 Memorial YclxnmwBMYXLJ0155-87-13 15:24:003.3[facility] UydeqbzYHCSQU1312-11-39 15:24:72289Jlgcaibb HermannSPECIAL ELYJTKCMQ7029-58-38 15:24:005.5[facility] HermannSPECIAL GHHXDWYBW6216-61-76 15:24:000.4[facility] HermannURINE AND STOOL 2021-05-27 15:24:00 Test Item Value Reference Range Interpretation Comments UA Spec Grav (test code = UA Spec 1.019 1 1.001-1.035 Grav) [facility] HermannCARDIAC PXKKVXX1358-01-04 16:20:0056[facility] HermannCHEM PANEL 2020-05-15 16:20:0093Mem[facility] HermannCHEM TUKYK1843-11-30 16:20:0014Mem[facility] HermannCHEM NMNMO8446-02-85 16:20:000.86[facility] HermannCHEM KIVKS7720-68-78 16:20:0088Mem[facility] HermannCHEM FMDUA0277-97-49 16:20:15397Ztxjuoet HermannCHEM TVHTO2561-86-49 16:20:68987Auqoupvt HermannCHEM CAJYU2692-38-49 16:20:004.8 [facility] HermannCHEM NKUWP9499-92-04 16:20:81791Dtcwczxx HermannCHEM PANEL 2020-05-15 16:20:0028[facility] HermannCHEM KBYXW8411-17-26 16:20:009.3[facility] HermannCHEM EWSQY1898-11-37 16:20:007.0[facility] HermannCHEM FNQPY3487-84-44 16:20:004.1[facility] HermannCHEM BXDZP2748-77-96 16:20:002.9[facility] HermannCHEM GJIIU2507-54-87 16:20:001.4[facility] HermannCHEM LLBCJ7732-49-77 16:20:000.4 [facility] HermannCHEM AFRAR1938-47-40 16:20:0041Mem[facility] HermannCHEM PANEL 2020-05-15 16:20:0013Mem[facility] HermannCHEM CTETX2333-14-65 16:20:0013Mem[facility] LhmnfhhKHSLLLPQKF1703-40-93 16:20:006.0[facility] DqammgmUAEUIRYRBJ2200-28-53 16:20:004.79[facility] IkjmpxgAGPMDLMIGB0953-65-18 16:20:0015.0[facility] Carmine XRTTEWZFLY9110-07-74 16:20:0043.7[facility] JkjaxacBQUSYOXICU8113-94-19 16:20:00 91.2[facility] XfblpirCRGBTQMRZH8237-55-82 16:20:00 Test Item Value Reference Range Interpretation Comments MCH (test code = MCH) 31.3 pg 27.0-33.0 Memorial RoqagfnEPZIHCQXNY9458-01-51 16:20:0034.3[facility] HermannHEMATOLOGY 2020-05-15 16:20:0013.1[facility] RauakuvRTVLXNVKYW0349-83-39 16:20:43233Movowsre TzpvogmRJTGCJYJRR0862-67-87 16:20:0011.7[facility] ToowlrdNYDAPSGFGU8535-40-17 16:20:877185Mjegzdey NlrvvcnUJHGDEJLRR8000-66-47 16:20:334308Zbqtrcjw Carmine GVKFRLDKTP2394-02-95 16:20:32601Boppqtif ViicrbmTTDUDIYRLE7898-45-93 16:20:38018 [facility] FuuoydyICHLTYURMU2158-16-68 16:20:92146Cmdcclfc HermannHEMATOLOGY 2020-05-15 16:20:0056.2[facility] YmbsynyLDMVMJCSRG6317-99-98 16:20:0030.6[facility] AzjxshlVGSFRPLNRT1566-63-60 16:20:007.5[facility] VskoktjBIMCIQZFBZ9078-96-49 16:20:004.0[facility] IihonsdPLAVGUESOE8929-65-61 16:20:001.7[facility] Miguelito MSIGTB5943-13-14 16:20:60164Ejasdoau MvoyagqXYVUDP8879-59-69 16:20:0051Mem[facility] GjokodtDAHCVY4863-77-54 16:20:0074[facility] VujwyykCAMSUC6719-13-48 16:20:94828 Memorial LsxesevUZECMK6387-15-39 16:20:003.3[facility] HfpxpewWWIDLP3689-55-91 16:20:77102Qbmronpz HermannSPECIAL ZBHEHQGLC7172-42-89 16:20:005.7[facility] HermannSPECIAL GQLYHFTXO4339-56-62 16:20:000.4[facility] HermannURINE AND STOOL 2020-05-15 16:20:00 Test Item Value Reference Range Interpretation Comments UA Spec Grav (test code = UA Spec 1.016 1 1.001-1.035 Grav) [facility] HermannURINE AND XADEB0429-33-97 16:20:00 Test Item Value Reference Range Interpretation Comments UA pH (test code = UA pH) 6.0 1 5.0-8.0 Memorial ObochhmUXVCILCXNB2548-25-82 13:42:00 Test Item Value Reference Range Interpretation Comments Hep Signal to Cut-Off (test code = Hep 0.01 1 Signal to Cut-Off) Memorial NaepbfaJRFNLS2425-50-66 13:42:40668Nfutckld CtjebaiHVULEP8170-10-92 13:42:0047[facility] ZigjptyEEEPDM3423-16-17 13:42:0077Memorial HermannLIPIDS 2019-10-19 13:42:68514Wyhpiaps JyvueocUTSPXX7034-27-43 13:42:003.8[facility] ZmhcxroRLIBEH4137-90-80 13:42:71481Gqbltrgk HermannSPECIAL RAXKIUNUW6830-39-13 13:42:005.8[facility] HermannBLOOD BANK YVPVUEQ0573-36-88 21:52:00Negative (08/30/18 4:52 PM)[facility] HermannCARDIAC WUNUPTV1893-47-03 21:52:70329Wgkorkrb HermannCHEM MNRGY7430-52-61 21:52:000.84Mem[facility] HermannCHEM VFWTQ5330-03-08 21:52:39501Axumgogf HermannCHEM LUNKX8504-64-88 21:52:0022Mem[facility] HermannCHEM ZFECF0906-44-43 21:52:40965Nfeqknnm HermannCHEM HUVTH6871-56-52 21:52:0090 [facility] HermannCHEM CJKQA3174-68-80 21:52:000.9[facility] HermannCHEM PANEL 2018-08-30 21:52:004.5[facility] HermannCHEM KNZJO9208-71-73 21:52:003.8[facility] HermannCHEM FKBEO8252-68-05 21:52:007.6[facility] HermannCHEM DOUKQ3784-41-61 21:52:008.3[facility] HermannCHEM GAWWU7250-90-06 21:52:0045Mem[facility] HermannCHEM FUQZW1752-74-23 21:52:99380Tbtahsyr HermannCHEM QHLGL8352-36-14 21:52:0026 [facility] HermannCHEM HGOGX2374-46-42 21:52:0033Mem[facility] HermannCHEM PANEL 2018-08-30 21:52:0039Mem[facility] HermannCHEM DHNLD7585-04-08 21:52:0011.5[facility] HermannCHEM RQONN0119-21-31 21:52:00 Test Item Value Reference Range Interpretation Comments B/C Ratio (test code = B/C Ratio) 26 1 6-25 [facility] HermannCHEM MGNGX7653-37-33 21:52:003.8[facility] HermannCHEM PANEL 2018-08-30 21:52:00 Test Item Value Reference Range Interpretation Comments A/G Ratio (test code = A/G Ratio) 1.0 1 0.7-1.6 Memorial XrdqtifMBHQKJPWTL4715-57-24 21:52:001.5[facility] HermannHEMATOLOGY 2018-08-30 21:52:008.2[facility] HxntwadYIIKTXPZGU5236-32-30 21:52:001.2[facility] DxmknymNPVTGPVIQC2681-03-38 21:52:006.1[facility] ZhgrrmkMHAHOSDBDR5891-12-71 21:52:000.7[facility] GnlaepmVXGBHIHBLP8866-01-76 21:52:001.8[facility] Miguelito EIBJCVEOUK8265-03-17 21:52:000.1[facility] OwccnblKABJRTLATX2272-79-84 21:52:000.1 Memorial HalduevRAHGQQJONY5133-04-54 21:52:0020.0[facility] HermannHEMATOLOGY 2018-08-30 21:52:0069.1[facility] GsknemwFIAKKJZCVH4059-31-41 21:52:00 Test Item Value Reference Range Interpretation Comments PTT (test code = PTT) 29.8 s 22.9-35.8 [facility] VduuvwcDPERGMFXJC7523-52-90 21:52:00 Test Item Value Reference Range Interpretation Comments INR (test code = INR) 1.06 1 0.85-1.17 [facility] TuezaxdXWMKVVFBXD0819-42-25 21:52:00 Test Item Value Reference Range Interpretation Comments PT (test code = PT) 13.8 s 12.0-14.7 [facility] StxuhzqJUBXRYEOVZ9867-53-75 21:52:008.8[facility] HermannHEMATOLOGY 2018-08-30 21:52:0013.9[facility] BudqqilCRFBOTMVZD3333-58-67 21:52:0094.4[facility] QvwdprmFKPPTCBEMD6379-95-46 21:52:00 Test Item Value Reference Range Interpretation Comments MCH (test code = MCH) 32.0 pg 27.0-31.0 [facility] WtqvdrkKYBASZLUXC0765-35-56 21:52:0033.9[facility] HermannHEMATOLOGY 2018-08-30 21:52:0012.9[facility] UfljflxTFCIPWSPFU2715-13-22 21:52:0038.1[facility] LwnrfwrIQPBQNWNAF2846-54-03 21:52:004.04[facility] HtqvfptTDBJFKLUIX7724-65-46 21:52:81265Ggocqkfy TqgesvrECSXATYCEY5251-35-67 21:52:009.5[facility] Miguelito
[2021-07-21] MEDS ORDERED: ACETAMINOPHEN 500 MG TAB PO PRN (00:04)
[2021-07-21] MEDS ORDERED: RIVAROXABAN 10 MG TABLET PO SCH (00:04)
[2021-07-21] MEDS ORDERED: ONDANSETRON 4 MG/2 ML VIAL IV PRN (00:04)
[2021-07-21] MEDS ORDERED: MORPHINE 2 MG/ML SYR IV PRN (00:04)
[2021-07-21] MEDS: RIVAROXABAN 20 MG TABLET PO SCH ×2 (01:00→16:59)
--- NOTE | 2021-07-21 01:35 | P.HP ---
Certification for Inpatient Patient admitted to: Inpatient With expected LOS: >2 Midnights Patient will require the following post-hospital care: None Practitioner: I am a practitioner with admitting privileges, knowledge of patient current condition, hospital course, and medical plan of care. Services: Services provided to patient in accordance with Admission requirements found in Title 42 Section 412.3 of the Code of Federal Regulations Patient History Date of Service: 07/20/21 Primary Care Provider: Chris Grossman Reason for admission: covid pneumonia History of Present Illness: Mr Dominguez is a 71 yo M with history of cardiac valve replacement who presents with COVID+ diagnosis on and symptoms of COVID beginning Tuesday before last. He has received Regeneron and 2 doses of remdesmivir thus far. He came to the ED today because his pulse ox level read in the 60s. On arrival, RA sats were in the 60s as well, now stable on HFNC. He says his symptoms have continued to worsen. Reports nonproductive cough, fatigue, fever, diarrhea, poor appetite. Denies wheezing, pleuritic pain, and nausea/vomiting. Fluid intake has been good. He is a former smoker. Ddimer 934. Na 133, Cl 96. BUN 24, GFR 75. Ferritin 1090. AST 60. CRP 104. Received 500cc bolus of NS in the ED. Allergies No Known Allergies Allergy (Unverified 07/21/21 00:03) Home medications list reviewed: Yes - Past Medical/Surgical History Diabetic: No -: heart valve replacement -: opehn heart surgery -: quadricep tendon repair -: basal cell carcinoma removal - Family History Brother -: Cancer - Social History Smoking Status: Former smoker Alcohol use: Yes CD- Drugs: No Caffeine use: Yes Place of Residence: Home Review of Systems 10-point ROS is otherwise unremarkable General: Fever, Malaise Respiratory: Cough, Shortness of Breath, SOB with Excertion Gastrointestinal: Diarrhea Physical Examination - Physical Exam General: Alert, In no apparent distress HEENT: Atraumatic, PERRLA, Mucous membr. moist/pink, EOMI, Sclerae nonicteric Neck: Supple, 2+ carotid pulse no bruit, No LAD, Without JVD or thyroid abnormality Respiratory: Diminished, Rhonchi/gurgles Cardiovascular: Regular rate/rhythm, Normal S1 S2 Gastrointestinal: Normal bowel sounds, No tenderness Musculoskeletal: No tenderness Integumentary: No rashes Neurological: Normal speech, Normal strength at 5/5 x4 extr, Normal tone, Normal affect Lymphatics: No axilla or inguinal lymphadenopathy - Studies Laboratory Data (last 24 hrs) 07/20/21 21:00: PT 14.5 H, INR 1.26, APTT 25.6 07/20/21 21:00: WBC 6.40, Hgb 13.6, Hct 38.8 L, Plt Count 165 07/20/21 21:00: Sodium 133 L, Potassium 3.6, BUN 24 H, Creatinine 0.98, Glucose 111 H, Total Bilirubin 0.6, AST 60 H, ALT 33, Alkaline Phosphatase 38 L, Lipase 51 L Microbiology Data (last 24 hrs): 07/20/21 20:25 Throat Group A Streptococcus Rapid Screen - Final Assessment and Plan - Problems (Diagnosis) (1) Pneumonia due to COVID-19 virus Current Visit: Yes Status: Acute - Plan pulm consulted, RT consulted continue HFNC, titrate down. room air sats daily, saturations for home O2 continue IV steroids, covid supplements, and ivermectin continue remdesmivir doses Xarelto daily daily CRP, ferritin, procal Discharge Plan: Home Plan to discharge in: 72 Hours - Advance Directives Does patient have a Living Will: No Does patient have a Durable POA for Healthcare: No - Code Status/Comfort Care Code Status Assessed: Yes (full code ) Critical Care: No Time Spent Managing Pts Care (In Minutes): 70
[2021-07-21] MEDS: BENZONATATE 100 MG CAP PO PRN ×3 (02:05→18:24)
[2021-07-21] MEDS ORDERED: BENZONATATE 100 MG CAP PO ONE ×4 (02:20→21:32)
[2021-07-21] MEDS ORDERED: RIVAROXABAN 20 MG TABLET PO ONE ×2 (02:21→12:38)
[2021-07-21 02:55] LABS: Absolute Lymphocytes (CBC) 0.4 K/uL (0.7-4.9); Basophils % 0.6 % (0-1.3); Hematocrit 39.8 % (39.6-49.0); Lymphocytes % 6.1 % (15.3-44.8); MPV 9.1 fL (7.6-11.3); RBC Red Blood Cell Count 4.52 M/uL (4.33-5.43)
[2021-07-21 03:15] LABS: Albumin 2.6 g/dL (3.4-5.0); Bilirubin Total 0.6 mg/dL (0.2-1.0); Ferritin 1120.4 ng/mL (26-388); Magnesium 2.3 mg/dL (1.8-2.4); Phosphorus 2.7 mg/dL (2.5-4.9); Potassium 4.1 mmol/L (3.5-5.1)
[2021-07-21 04:32] LABS: Blood Morphology Comment NOT SEEN (NOT SEEN); Platelet Estimate ADEQ
--- NOTE | 2021-07-21 07:37 | EKG ---
Test Date: 2021-07-20 Test Time: 20:51:37 Design Leader: [employer] MEASUREMENT RESULTS: Intervals: Rate: 79 UT: 168 QRSD: 106 QT: 398 QTc: 456 [place]: P: 45 UT: 168 QRS: -9 T: 33 INTERPRETIVE STATEMENTS: Normal sinus rhythm Normal ECG No previous ECG available for comparison Electronically Signed On 07-21-21 07:36:15 CDT by Pedro Gomez
[2021-07-21] MEDS ORDERED: VITAMIN D 1000 UNIT TAB ONE (07:50)
[2021-07-21] MEDS ORDERED: THIAMINE HCL 100 MG TABLET ONE (07:50)
[2021-07-21] MEDS ORDERED: ASCORBIC ACID 500 MG TABLET ONE ×2 (07:50→21:32)
[2021-07-21] MEDS ORDERED: ZINC SULFATE 220 MG CAP ONE (07:50)
[2021-07-21] MEDS ORDERED: METHYLPREDNISOLONE 40 MG INJ ONE (07:51)
[2021-07-21] MEDS ORDERED: FAMOTIDINE 20 MG TAB ONE ×2 (07:51→21:33)
[2021-07-21] MEDS: VITAMIN D 1000 UNIT TAB PO SCH (08:27)
[2021-07-21] MEDS: ASCORBIC ACID 500 MG TABLET PO SCH ×4 (08:27→21:00)
[2021-07-21] MEDS: METHYLPREDNISOLONE 125 MG INJ IV SCH ×2 (08:27→21:00)
[2021-07-21] MEDS: THIAMINE HCL 100 MG TABLET PO SCH (08:27)
[2021-07-21] MEDS: ZINC SULFATE 220 MG CAP PO SCH (08:27)
[2021-07-21] MEDS: FAMOTIDINE 20 MG TAB PO SCH ×2 (08:27→21:00)
[2021-07-21] MEDS: IVERMECTIN 3 MG TABLET PO SCH (08:27)
--- NOTE | 2021-07-21 10:44 | RAD REPORT ---
EXAM DESCRIPTION: RAD - Chest Single View - 07/20/2021 10:40 pm CLINICAL HISTORY: SOB Prolonged technical malfunction delayed final written report. Exam was reviewed at the time of the [facility] for critical finding. COMPARISON: None TECHNIQUE: AP portable chest image was obtained 07/20/2021 10:40 pm . FINDINGS: Patchy interstitial and alveolar opacities are present throughout both lung mcclellan. Baseli ne presentation for the patient is unknown. COVID testing results are not known. It bilateral COVID-1 9 pneumonia would be a primary consideration given the lung parenchymal findings and the current clin ical environment. Non COVID viral pneumonia or organizing pneumonia would be possible. An atypical CH F/volume overload pattern is possible as well. Sternotomy wires are in place. Heart and vasculature are normal. No measurable pleural effusion and n o pneumothorax. No acute bony abnormality seen. No acute aortic findings suspected. IMPRESSION: Baseline chest examination showing scattered interstitial and alveolar opacities of the lung parenchyma. Bilateral COVID-19 pneumonia would be a primary consideration in the current clinical environment. CO VID testing results are not available at the time of this dictation.
--- NOTE | 2021-07-21 11:40 | P.CNS ---
Date of Consult: 07/21/21 Primary Care Provider: Chris Grossman Chief Complaint: covid pneumonia History of Present Illness: Patient is 71 years of age with a history of cardiac valve replacement and admitted with the abebe virus pneumonia and respiratory failure Allergies No Known Allergies Allergy (Unverified 07/21/21 00:03) Home Medications: Aspirin 81 mg PO DAILY 07/21/21 - Past Medical/Surgical History Diabetic: No -: Atrial fibrillation -: Flutter valve replacement -: heart valve replacement -: opehn heart surgery -: quadricep tendon repair -: basal cell carcinoma removal - Family History Brother Medical History: Cancer - Social History Alcohol use: Yes CD- Drugs: No Caffeine use: Yes Place of Residence: Home Review of Systems General: Fever, Weakness Respiratory: Shortness of Breath Gastrointestinal: Diarrhea Physical Examination Temp Pulse Resp BP Pulse Ox 98.3 F 81 26 H 131/71 86 L 07/21/21 08:00 07/21/21 08:00 07/21/21 08:00 07/21/21 08:00 07/21/21 08:00 General: Alert, Oriented x3, Cooperative Laboratory Data (last 24 hrs) 07/20/21 21:00: PT 14.5 H, INR 1.26, APTT 25.6 07/20/21 21:00: WBC 6.40, Hgb 13.6, Hct 38.8 L, Plt Count 165 07/20/21 21:00: Sodium 133 L, Potassium 3.6, BUN 24 H, Creatinine 0.98, Glucose 111 H, Total Bilirubin 0.6, AST 60 H, ALT 33, Alkaline Phosphatase 38 L, Lipase 51 L - Problems (1) Pneumonia due to COVID-19 virus Current Visit: Yes Status: Acute Plan: Age 71 admitted with abebe virus pneumonia requiring high concentrations of oxygen labs reviewed start patient on p.o. aspirin labs reviewed patient will qualify for Barcitnib
[2021-07-21] MEDS: BARICITINIB 2 MG TABLET PO SCH (12:00)
[2021-07-21] MEDS ORDERED: ASPIRIN EC 81 MG TAB PO ONE (12:37)
[2021-07-21] MEDS: ASPIRIN EC 81 MG TAB PO SCH (12:40)
--- NOTE | 2021-07-21 14:12 | P.PN ---
Subjective Date of Service: 07/21/21 Primary Care Provider: Chris Grossman Chief Complaint: covid pneumonia Patient reports dyspnea on exertion. He denies shortness of breath at rest. He is maintained on 15 L of oxygen by nasal cannula. Physical Examination - Vital Signs Temperature: 97.6 F Blood Pressure: 133/77 Pulse: 81 Respirations: 26 Pulse Ox (%): 88 - Physical Exam General: Alert, In no apparent distress, Oriented x3 Neck: JVD not distended Respiratory: Other (Nonlabored breathing) Cardiovascular: No edema, Normal S1 S2, Irregular heart rate/rhythm Gastrointestinal: Soft and benign, Non-distended, Other (Obese abdomen) Musculoskeletal: No swelling Integumentary: No rashes Neurological: Normal speech, Normal strength at 5/5 x4 extr - Studies Laboratory Data (last 24 hrs) 07/20/21 21:00: PT 14.5 H, INR 1.26, APTT 25.6 07/20/21 21:00: WBC 6.40, Hgb 13.6, Hct 38.8 L, Plt Count 165 07/20/21 21:00: Sodium 133 L, Potassium 3.6, BUN 24 H, Creatinine 0.98, Glucose 111 H, Total Bilirubin 0.6, AST 60 H, ALT 33, Alkaline Phosphatase 38 L, Lipase 51 L Microbiology Data (last 24 hrs): 07/20/21 20:25 Throat Group A Streptococcus Rapid Screen - Final Assessment And Plan - Current Problems (Diagnosis) (1) Acute respiratory failure with hypoxia Current Visit: Yes Status: Acute (2) Pneumonia due to COVID-19 virus Current Visit: Yes Status: Acute (3) Atrial fibrillation Current Visit: Yes Status: Acute - Plan Continue treatment per COVID protocol. IV steroid, vitamin supplementation, zinc supplementation. Monitor inflammatory markers. Cardiac monitoring for atrial fibrillation Continue Xarelto. Pulmonary input appreciated. Status post monoclonal antibody. Pulmonary assessing need for Baracitinib.
[2021-07-21] MEDS ORDERED: ACETAMINOPHEN 500 MG TAB ONE (21:32)
[2021-07-21] MEDS ORDERED: METHYLPREDNISOLONE 125 MG INJ ONE (21:32)
[2021-07-21] MEDS ORDERED: MELATONIN 5 MG TABLET PO ONE (21:32)
[2021-07-22 02:56] LABS: Absolute Lymphocytes (CBC) 0.9 K/uL (0.7-4.9); Basophils % 0.1 % (0-1.3); Hematocrit 39.6 % (39.6-49.0); MPV 9.7 fL (7.6-11.3); RBC Red Blood Cell Count 4.43 M/uL (4.33-5.43)
[2021-07-22 03:28] LABS: BUN Blood Urea Nitrogen 25 mg/dL (7-18); Bicarbonate 28 mmol/L (21-32); Glucose Level 156 mg/dL (74-106); Potassium 3.7 mmol/L (3.5-5.1); Sodium Level 131 mmol/L (136-145)
[2021-07-22] MEDS ORDERED: RIVAROXABAN 20 MG TABLET PO ONE (07:59)
[2021-07-22] MEDS ORDERED: ASPIRIN EC 81 MG TAB PO ONE (07:59)
[2021-07-22] MEDS ORDERED: HYDROCORTISONE SUC 100 MG INJ ONE (07:59)
[2021-07-22] MEDS ORDERED: THIAMINE HCL 100 MG TABLET ONE (07:59)
[2021-07-22] MEDS ORDERED: ZINC SULFATE 220 MG CAP ONE (08:00)
[2021-07-22] MEDS ORDERED: VITAMIN D 1000 UNIT TAB ONE (08:00)
[2021-07-22] MEDS ORDERED: FAMOTIDINE 20 MG TAB ONE ×2 (08:00→21:16)
[2021-07-22] MEDS: BARICITINIB 2 MG TABLET PO SCH (09:00)
[2021-07-22] MEDS: THIAMINE HCL 100 MG TABLET PO SCH (09:00)
[2021-07-22] MEDS: METHYLPREDNISOLONE 125 MG INJ IV SCH ×2 (09:00→21:00)
[2021-07-22] MEDS: VITAMIN D 1000 UNIT TAB PO SCH (09:00)
[2021-07-22] MEDS: ASPIRIN EC 81 MG TAB PO SCH (09:00)
[2021-07-22] MEDS: ZINC SULFATE 220 MG CAP PO SCH (09:00)
[2021-07-22] MEDS: FAMOTIDINE 20 MG TAB PO SCH ×2 (09:00→21:00)
[2021-07-22] MEDS: ASCORBIC ACID 500 MG TABLET PO SCH ×4 (09:00→21:00)
[2021-07-22] MEDS: BENZONATATE 100 MG CAP PO PRN ×2 (09:12→17:16)
[2021-07-22] MEDS ORDERED: BENZONATATE 100 MG CAP PO ONE ×2 (09:33→17:15)
[2021-07-22] MEDS ORDERED: ASCORBIC ACID 500 MG TABLET ONE ×2 (12:28→21:16)
--- NOTE | 2021-07-22 16:28 | P.PN ---
Subjective Date of Service: 07/22/21 Primary Care Provider: Chris Grossman Chief Complaint: covid pneumonia Patient requiring 15 L of oxygen by nasal cannula. Physical Examination - Vital Signs Temperature: 97.6 F Blood Pressure: 113/65 Pulse: 66 Respirations: 26 Pulse Ox (%): 93 - Physical Exam General: Alert, In no apparent distress, Oriented x3 Neck: JVD not distended Respiratory: Other (Nonlabored breathing) Cardiovascular: Regular rate/rhythm, Normal S1 S2 Gastrointestinal: Soft and benign, Non-distended Musculoskeletal: No swelling Integumentary: No rashes Neurological: Normal strength at 5/5 x4 extr Assessment And Plan - Current Problems (Diagnosis) (1) Acute respiratory failure with hypoxia Current Visit: Yes Status: Acute (2) Pneumonia due to COVID-19 virus Current Visit: Yes Status: Acute (3) Atrial fibrillation Current Visit: Yes Status: Acute - Plan Continue treatment per COVID protocol. IV steroid, vitamin supplementation, zinc supplementation. Monitor inflammatory markers. Cardiac monitoring for atrial fibrillation Continue Xarelto. Pulmonary input appreciated. Status post monoclonal antibody. Patient started on Baracitinib.
[2021-07-22] MEDS: RIVAROXABAN 20 MG TABLET PO SCH (17:00)
[2021-07-22] MEDS: ENSURE ENLIVE 237 ML CAN PO SCH (21:00)
[2021-07-22] MEDS ORDERED: METHYLPREDNISOLONE 40 MG INJ ONE (21:16)
[2021-07-23 02:57] LABS: Absolute Lymphocytes (CBC) 1.1 K/uL (0.7-4.9); Basophils % 0.1 % (0-1.3); Hematocrit 38.9 % (39.6-49.0); Lymphocytes % 8.5 % (15.3-44.8); MPV 9.3 fL (7.6-11.3); RBC Red Blood Cell Count 4.36 M/uL (4.33-5.43)
[2021-07-23 03:02] LABS: BUN Blood Urea Nitrogen 26 mg/dL (7-18); Bicarbonate 28 mmol/L (21-32); Glucose Level 135 mg/dL (74-106); Potassium 3.8 mmol/L (3.5-5.1); Sodium Level 132 mmol/L (136-145)
[2021-07-23] MEDS: BARICITINIB 2 MG TABLET PO SCH (09:00)
[2021-07-23] MEDS: ZINC SULFATE 220 MG CAP PO SCH (09:00)
[2021-07-23] MEDS: FAMOTIDINE 20 MG TAB PO SCH ×2 (09:00→21:00)
[2021-07-23] MEDS: VITAMIN D 1000 UNIT TAB PO SCH (09:00)
[2021-07-23] MEDS: IVERMECTIN 3 MG TABLET PO SCH (09:00)
[2021-07-23] MEDS: ASCORBIC ACID 500 MG TABLET PO SCH ×4 (09:00→21:59)
[2021-07-23] MEDS: THIAMINE HCL 100 MG TABLET PO SCH (09:00)
[2021-07-23] MEDS: ENSURE ENLIVE 237 ML CAN PO SCH ×2 (09:00→21:00)
[2021-07-23] MEDS: METHYLPREDNISOLONE 125 MG INJ IV SCH ×2 (09:00→22:00)
[2021-07-23] MEDS: ASPIRIN EC 81 MG TAB PO SCH (09:00)
[2021-07-23] MEDS ORDERED: METHYLPREDNISOLONE 125 MG INJ ONE (10:35)
[2021-07-23] MEDS ORDERED: ASPIRIN EC 81 MG TAB PO ONE (10:36)
[2021-07-23] MEDS ORDERED: FAMOTIDINE 20 MG TAB ONE (10:36)
[2021-07-23] MEDS ORDERED: VITAMIN D 1000 UNIT TAB ONE (10:38)
[2021-07-23] MEDS ORDERED: ASCORBIC ACID 500 MG TABLET ONE ×2 (10:38→18:40)
[2021-07-23] MEDS ORDERED: ZINC SULFATE 220 MG CAP ONE (10:39)
[2021-07-23] MEDS ORDERED: VITAMIN B COMPLEX 1 CAP ONE (10:40)
[2021-07-23] MEDS ORDERED: THIAMINE HCL 100 MG TABLET ONE (10:51)
[2021-07-23 14:08] LABS: Urine Blood 1+ (Negative); Urine Glucose Negative (Negative); Urine Protein 2+ (Negative); Urine Specific Gravity 1.025 (1.005-1.030)
[2021-07-23] MEDS: RIVAROXABAN 20 MG TABLET PO SCH (17:00)
[2021-07-23] MEDS ORDERED: RIVAROXABAN 20 MG TABLET PO ONE (18:40)
--- NOTE | 2021-07-23 20:17 | P.PN ---
Subjective Date of Service: 07/23/21 Primary Care Provider: Crhis Grossman Chief Complaint: covid pneumonia Patient used CPAP overnight and could not be weaned off to oxygen by nasal canal. Physical Examination - Vital Signs Temperature: 96.6 F Blood Pressure: 120/101 Pulse: 66 Respirations: 19 Pulse Ox (%): 93 - Physical Exam General: Alert, In no apparent distress HEENT: Other (CPAP) Neck: JVD not distended Respiratory: Other (Nonlabored breathing) Cardiovascular: Regular rate/rhythm, Normal S1 S2 Gastrointestinal: Soft and benign, Non-distended Musculoskeletal: No swelling Integumentary: No rashes Neurological: Normal strength at 5/5 x4 extr - Studies Microbiology Data (last 24 hrs): 07/20/21 20:25 Throat Culture & Sensitivity - Final NORMAL UPPER RESPIRATORY ESHA GROWN. Assessment And Plan - Current Problems (Diagnosis) (1) Acute respiratory failure with hypoxia Current Visit: Yes Status: Acute (2) Pneumonia due to COVID-19 virus Current Visit: Yes Status: Acute (3) Atrial fibrillation Current Visit: Yes Status: Acute - Plan Patient currently on CPAP Continue IV steroid, vitamin supplementation, zinc supplementation. Continue Baracitinib. Monitor inflammatory markers. CBC and blood chemistry Cardiac monitoring. Continue Xarelto. Pulmonary input appreciated. Status post monoclonal antibody.
[2021-07-23] MEDS: MELATONIN 5 MG TABLET PO PRN (22:00)
[2021-07-24 06:43] VITALS: BMI 29.6
[2021-07-24] MEDS: THIAMINE HCL 100 MG TABLET PO SCH (09:20)
[2021-07-24] MEDS: VITAMIN D 1000 UNIT TAB PO SCH (09:20)
[2021-07-24] MEDS: FAMOTIDINE 20 MG TAB PO SCH ×2 (09:20→20:39)
[2021-07-24] MEDS: ASPIRIN EC 81 MG TAB PO SCH (09:20)
[2021-07-24] MEDS: ASCORBIC ACID 500 MG TABLET PO SCH ×4 (09:21→20:39)
[2021-07-24] MEDS: METHYLPREDNISOLONE 125 MG INJ IV SCH ×2 (09:21→20:38)
[2021-07-24] MEDS: ZINC SULFATE 220 MG CAP PO SCH (09:21)
[2021-07-24] MEDS: ENSURE ENLIVE 237 ML CAN PO SCH ×2 (10:10→20:38)
[2021-07-24] MEDS: BARICITINIB 2 MG TABLET PO SCH (10:10)
[2021-07-24] MEDS: BENZONATATE 100 MG CAP PO PRN ×2 (12:49→20:42)
--- NOTE | 2021-07-24 14:18 | P.PN ---
Subjective Date of Service: 07/24/21 Primary Care Provider: Chris Grossman Chief Complaint: covid pneumonia Patient still on CPAP with 50% fiO2. Physical Examination - Vital Signs Temperature: 98.7 F Blood Pressure: 136/91 Pulse: 78 Respirations: 20 Pulse Ox (%): 92 - Physical Exam General: Alert, Oriented x3 HEENT: Other (CPAP) Neck: JVD not distended Respiratory: Other (Nonlabored breathing) Cardiovascular: Regular rate/rhythm, Normal S1 S2 Gastrointestinal: Soft and benign, Non-distended Musculoskeletal: No swelling Integumentary: No rashes, No cyanosis Neurological: Normal strength at 5/5 x4 extr Assessment And Plan - Current Problems (Diagnosis) (1) Acute respiratory failure with hypoxia Current Visit: Yes Status: Acute (2) Pneumonia due to COVID-19 virus Current Visit: Yes Status: Acute (3) Atrial fibrillation Current Visit: Yes Status: Acute - Plan Patient currently requiring CPAP Continue IV steroid, vitamin supplementation, zinc supplementation. Continue Baracitinib. Monitor inflammatory markers. CBC and blood chemistry Cardiac monitoring. Continue Xarelto. Pulmonary is following Status post monoclonal antibody. Weaned off CPAP as tolerated, Patient's updated.
--- NOTE | 2021-07-24 15:20 | P.PN ---
Subjective Date of Service: 07/24/21 Primary Care Provider: Chris Grossman Chief Complaint: covid pneumonia Subjective: Improving (Patient is feeling better improving still requiring high concentration of oxygen) Review of Systems General: Weakness Respiratory: Shortness of Breath Physical Examination - Vital Signs Temperature: 98.7 F Blood Pressure: 136/91 Pulse: 78 Respirations: 20 Pulse Ox (%): 92 - Physical Exam General: Alert, Oriented x3, Cooperative Assessment & Plan - Problems (Diagnosis) (1) Pneumonia due to COVID-19 virus Current Visit: Yes Status: Acute Plan: Respiratory failure subjectively feeling better patient is on maximal therapy still requiring high concentration of oxygen
[2021-07-24] MEDS: RIVAROXABAN 20 MG TABLET PO SCH (17:24)
[2021-07-25 05:53] LABS: Absolute Lymphocytes (CBC) 0.7 K/uL (0.7-4.9); Basophils % 0.1 % (0-1.3); Hematocrit 37.6 % (39.6-49.0); Lymphocytes % 6.4 % (15.3-44.8); MPV 9.6 fL (7.6-11.3)
[2021-07-25 06:07] LABS: BUN Blood Urea Nitrogen 36 mg/dL (7-18); Bicarbonate 30 mmol/L (21-32); Ferritin 469.9 ng/mL (26-388); Glucose Level 143 mg/dL (74-106); Magnesium 2.7 mg/dL (1.8-2.4); Phosphorus 4.1 mg/dL (2.5-4.9); Potassium 4.2 mmol/L (3.5-5.1); Sodium Level 139 mmol/L (136-145)
[2021-07-25 08:43] LABS: Blood Morphology Comment NOT SEEN (NOT SEEN); Platelet Estimate ADEQ; White Blood Cell Scan OK (OK)
[2021-07-25] MEDS: THIAMINE HCL 100 MG TABLET PO SCH (10:05)
[2021-07-25] MEDS: ZINC SULFATE 220 MG CAP PO SCH (10:05)
[2021-07-25] MEDS: VITAMIN D 1000 UNIT TAB PO SCH (10:05)
[2021-07-25] MEDS: FAMOTIDINE 20 MG TAB PO SCH ×2 (10:06→20:48)
[2021-07-25] MEDS: ASPIRIN EC 81 MG TAB PO SCH (10:06)
[2021-07-25] MEDS: ASCORBIC ACID 500 MG TABLET PO SCH ×4 (10:06→20:47)
[2021-07-25] MEDS: METHYLPREDNISOLONE 125 MG INJ IV SCH ×2 (10:07→20:47)
[2021-07-25] MEDS: BARICITINIB 2 MG TABLET PO SCH (10:08)
[2021-07-25] MEDS: BENZONATATE 100 MG CAP PO PRN ×2 (10:19→21:13)
--- NOTE | 2021-07-25 11:06 | RAD REPORT ---
EXAM DESCRIPTION: RAD - Chest Single View - 07/25/2021 7:10 am CLINICAL HISTORY: Coronavirus pneumonia Chest pain. COMPARISON: Chest Single View dated 07/20/2021 FINDINGS: Portable technique limits examination quality. Moderate bilateral pulmonary opacities are present, mildly progressive since 07/20/2021. The heart is normal in size. No displaced fractures. IMPRESSION: Bilateral pulmonary opacities have mildly to moderately worsened, especially on the left , since 07/20/2021.
--- NOTE | 2021-07-25 12:18 | P.PN ---
Subjective Date of Service: 07/25/21 Primary Care Provider: Chris Grossman Chief Complaint: covid pneumonia Patient comfortable on the CPAP. He desaturated with oxygen by nasal cannula. Physical Examination - Vital Signs Temperature: 99.2 F Blood Pressure: 154/65 Pulse: 56 Respirations: 21 Pulse Ox (%): 96 - Physical Exam General: Alert, In no apparent distress HEENT: Other (BiPAP) Respiratory: Other (Nonlabored breathing) Cardiovascular: Regular rate/rhythm, Normal S1 S2 Gastrointestinal: Soft and benign, Non-distended Musculoskeletal: No swelling, No erythema Neurological: Normal strength at 5/5 x4 extr Assessment And Plan - Current Problems (Diagnosis) (1) Acute respiratory failure with hypoxia Current Visit: Yes Status: Acute (2) Pneumonia due to COVID-19 virus Current Visit: Yes Status: Acute (3) Atrial fibrillation Current Visit: Yes Status: Acute - Plan Patient on CPAP Continue IV steroid, vitamin supplementation, zinc supplementation. Continue Baracitinib. Monitor inflammatory markers. CBC and blood chemistry Cardiac monitoring. Continue Xarelto. Pulmonary is following Status post monoclonal antibody. Weaned off CPAP as tolerated,
[2021-07-25] MEDS: RIVAROXABAN 20 MG TABLET PO SCH (16:27)
[2021-07-25] MEDS: ENSURE ENLIVE 237 ML CAN PO SCH ×2 (16:27→21:00)
[2021-07-25] MEDS: MELATONIN 5 MG TABLET PO PRN (21:13)
[2021-07-26 05:44] LABS: BUN Blood Urea Nitrogen 38 mg/dL (7-18); Bicarbonate 30 mmol/L (21-32); Glucose Level 142 mg/dL (74-106); Potassium 4.4 mmol/L (3.5-5.1); Sodium Level 138 mmol/L (136-145)
[2021-07-26 06:02] LABS: Absolute Lymphocytes (CBC) 0.6 K/uL (0.7-4.9); Lymphocytes % 4.2 % (15.3-44.8); MPV 9.2 fL (7.6-11.3); RBC Red Blood Cell Count 4.34 M/uL (4.33-5.43)
--- NOTE | 2021-07-26 08:41 | RAD REPORT ---
EXAM DESCRIPTION: [facility] Single View07/26/2021 6:55 am CLINICAL HISTORY: Chest pain COMPARISON: July 25, 2001 FINDINGS: Mild worsening bilateral pulmonary opacities more marked on the left. Heart remains enlarged. Post surgical changes involve chest IMPRESSION: Mild worsening in bilateral pulmonary opacities more marked on the left likely pneumonia
[2021-07-26] MEDS: VITAMIN D 1000 UNIT TAB PO SCH (09:37)
[2021-07-26] MEDS: BARICITINIB 2 MG TABLET PO SCH (09:38)
[2021-07-26] MEDS: FAMOTIDINE 20 MG TAB PO SCH ×2 (09:38→20:23)
[2021-07-26] MEDS: ASCORBIC ACID 500 MG TABLET PO SCH ×4 (09:38→20:23)
[2021-07-26] MEDS: THIAMINE HCL 100 MG TABLET PO SCH (09:38)
[2021-07-26] MEDS: ASPIRIN EC 81 MG TAB PO SCH (09:38)
[2021-07-26] MEDS: ENSURE ENLIVE 237 ML CAN PO SCH ×2 (09:39→21:00)
[2021-07-26] MEDS: METHYLPREDNISOLONE 125 MG INJ IV SCH ×2 (09:39→20:22)
[2021-07-26] MEDS: BENZONATATE 100 MG CAP PO PRN ×2 (09:39→20:23)
[2021-07-26] MEDS: ZINC SULFATE 220 MG CAP PO SCH (09:39)
--- NOTE | 2021-07-26 10:38 | P.PN ---
Subjective Date of Service: 07/26/21 Primary Care Provider: Chris Grossman Chief Complaint: covid pneumonia Subjective: Improving (Patient is feeling better still hypoxic) Review of Systems General: Weakness Respiratory: Shortness of Breath Physical Examination - Vital Signs Temperature: 97.1 F Blood Pressure: 165/78 Pulse: 68 Respirations: 21 Pulse Ox (%): 91 - Physical Exam General: Alert, In no apparent distress, Oriented x3, Cooperative - Studies Microbiology Data (last 24 hrs): 07/20/21 20:25 Blood - Blood Aerobic Blood Culture - Final No growth in 5 days. 07/20/21 20:25 Blood - Blood Anaerobic Blood Culture - Final No growth in 5 days. 07/20/21 20:25 Blood - Blood Aerobic Blood Culture - Final No growth in 5 days. 07/20/21 20:25 Blood - Blood Anaerobic Blood Culture - Final No growth in 5 days. Assessment & Plan - Problems (Diagnosis) (1) Pneumonia due to COVID-19 virus Current Visit: Yes Status: Acute Plan: Respiratory failure still requiring high concentrations of oxygen although he feels better high flow 15 L a minute on max therapy continue to titrate his O2 down able to be transferred to the floor if a bed is needed
--- NOTE | 2021-07-26 11:30 | P.PN ---
Subjective Date of Service: 07/26/21 Primary Care Provider: Chris Grossman Chief Complaint: covid pneumonia Patient patient not tolerating 15 L oxygen by nasal cannula. Oxygen requirement is improving. Physical Examination - Vital Signs Temperature: 97.1 F Blood Pressure: 165/78 Pulse: 68 Respirations: 21 Pulse Ox (%): 91 - Physical Exam General: Alert, In no apparent distress HEENT: Mucous membr. moist/pink Neck: JVD not distended Respiratory: Other (Nonlabored breathing) Cardiovascular: Regular rate/rhythm, Normal S1 S2 Gastrointestinal: Soft and benign, Non-distended Integumentary: No rashes Neurological: Normal strength at 5/5 x4 extr - Studies Microbiology Data (last 24 hrs): 07/20/21 20:25 Blood - Blood Aerobic Blood Culture - Final No growth in 5 days. 07/20/21 20:25 Blood - Blood Anaerobic Blood Culture - Final No growth in 5 days. 07/20/21 20:25 Blood - Blood Aerobic Blood Culture - Final No growth in 5 days. 07/20/21 20:25 Blood - Blood Anaerobic Blood Culture - Final No growth in 5 days. Assessment And Plan - Current Problems (Diagnosis) (1) Acute respiratory failure with hypoxia Current Visit: Yes Status: Acute (2) Pneumonia due to COVID-19 virus Current Visit: Yes Status: Acute (3) Atrial fibrillation Current Visit: Yes Status: Acute - Plan Oxygen requirements is improving. Continue IV steroid, vitamin supplementation, zinc supplementation. Continue Baracitinib. Continue Xarelto. Pulmonary is following Status post monoclonal antibody. Wean down oxygen as tolerated.
[2021-07-26] MEDS: RIVAROXABAN 20 MG TABLET PO SCH (16:03)
[2021-07-26] MEDS: MELATONIN 5 MG TABLET PO PRN (20:23)
--- NOTE | 2021-07-27 07:29 | RAD REPORT ---
EXAM DESCRIPTION: RAD - Chest Single View - 07/27/2021 5:53 am CLINICAL HISTORY: Coronavirus pneumonia COMPARISON: July 26, July 25 TECHNIQUE: AP portable chest image was obtained 07/27/2021 5:53 am . FINDINGS: Bilateral lung parenchymal disease is present not substantially different from comparison. No further progression is identified. Trachea is midline. Sternotomy wires are in place. Heart and vasculature are normal. No measurable pl eural effusion and no pneumothorax. IMPRESSION: Stable bilateral lung parenchymal disease compared July 26 imaging. No further progres [place].
[2021-07-27] MEDS: VITAMIN D 1000 UNIT TAB PO SCH (08:35)
[2021-07-27] MEDS: ASPIRIN EC 81 MG TAB PO SCH (08:35)
[2021-07-27] MEDS: METHYLPREDNISOLONE 125 MG INJ IV SCH ×2 (08:36→21:13)
[2021-07-27] MEDS: ASCORBIC ACID 500 MG TABLET PO SCH ×4 (08:36→21:12)
[2021-07-27] MEDS: FAMOTIDINE 20 MG TAB PO SCH ×2 (08:36→21:12)
[2021-07-27] MEDS: THIAMINE HCL 100 MG TABLET PO SCH (08:36)
[2021-07-27] MEDS: ZINC SULFATE 220 MG CAP PO SCH (08:37)
[2021-07-27] MEDS: BARICITINIB 2 MG TABLET PO SCH (08:37)
[2021-07-27] MEDS: ENSURE ENLIVE 237 ML CAN PO SCH ×2 (08:37→21:00)
[2021-07-27] MEDS ORDERED: FUROSEMIDE 20 MG/ 2ML VIAL IV ONE (12:09)
--- NOTE | 2021-07-27 12:10 | P.PN ---
Subjective Date of Service: 07/27/21 Primary Care Provider: Chris Grossman Chief Complaint: covid pneumonia Subjective: Improving (Subjectively improving still on 15 L on nasal cannula oxygen) Review of Systems General: Weakness Respiratory: Shortness of Breath Physical Examination - Vital Signs Temperature: 98.2 F Blood Pressure: 131/65 Pulse: 81 Respirations: 23 Pulse Ox (%): 86 - Physical Exam General: Alert, In no apparent distress, Oriented x3, Cooperative Assessment & Plan - Problems (Diagnosis) (1) Pneumonia due to COVID-19 virus Current Visit: Yes Status: Acute Plan: Respiratory failure still on 15 L on nasal cannula oxygen trial of fenofibrate IV Lasix
--- NOTE | 2021-07-27 12:36 | P.PN ---
Subjective Date of Service: 07/27/21 Primary Care Provider: Chris Grossman Chief Complaint: covid pneumonia Patient stable on 15 L oxygen by nasal canula. He states he feels fine. He denies shortness of breath at rest. Physical Examination - Vital Signs Temperature: 98.2 F Blood Pressure: 131/65 Pulse: 81 Respirations: 23 Pulse Ox (%): 86 - Physical Exam General: Alert, In no apparent distress Neck: JVD not distended Respiratory: Other (Nonlabored breathing) Cardiovascular: Regular rate/rhythm, Normal S1 S2 Gastrointestinal: Soft and benign, Non-distended Musculoskeletal: No swelling Integumentary: No rashes Neurological: Normal strength at 5/5 x4 extr Assessment And Plan - Current Problems (Diagnosis) (1) Acute respiratory failure with hypoxia Current Visit: Yes Status: Acute (2) Pneumonia due to COVID-19 virus Current Visit: Yes Status: Acute (3) Atrial fibrillation Current Visit: Yes Status: Acute - Plan Oxygen requirements is improving. Continue IV steroid, vitamin supplementation, zinc supplementation. Continue Baracitinib. Continue Xarelto. Pulmonary is following Status post monoclonal antibody. Wean down oxygen as tolerated. Transferred to the medical floor.
[2021-07-27] MEDS: RIVAROXABAN 20 MG TABLET PO SCH (16:08)
[2021-07-27] MEDS: MELATONIN 5 MG TABLET PO PRN (21:12)
[2021-07-27] MEDS: BENZONATATE 100 MG CAP PO PRN (21:12)
[2021-07-28 05:14] LABS: BUN Blood Urea Nitrogen 41 mg/dL (7-18); Bicarbonate 30 mmol/L (21-32); Glucose Level 156 mg/dL (74-106); Potassium 5.1 mmol/L (3.5-5.1); Sodium Level 139 mmol/L (136-145)
[2021-07-28 05:19] LABS: C-Reactive Protein < 2.90 mg/L (<3.00)
[2021-07-28 05:41] LABS: Absolute Lymphocytes (CBC) 0.3 K/uL (0.7-4.9); Hematocrit 36.9 % (39.6-49.0); Lymphocytes % 2.3 % (15.3-44.8); RBC Red Blood Cell Count 4.07 M/uL (4.33-5.43)
[2021-07-28] MEDS: VITAMIN D 1000 UNIT TAB PO SCH (09:15)
[2021-07-28] MEDS: BARICITINIB 2 MG TABLET PO SCH (09:15)
[2021-07-28] MEDS: METHYLPREDNISOLONE 125 MG INJ IV SCH ×2 (09:16→20:43)
[2021-07-28] MEDS: FAMOTIDINE 20 MG TAB PO SCH ×2 (09:16→20:44)
[2021-07-28] MEDS: ASCORBIC ACID 500 MG TABLET PO SCH ×4 (09:16→20:44)
[2021-07-28] MEDS: THIAMINE HCL 100 MG TABLET PO SCH (09:16)
[2021-07-28] MEDS: FENOFIBRATE 160 MG TAB PO SCH (09:16)
[2021-07-28] MEDS: ENSURE ENLIVE 237 ML CAN PO SCH ×2 (09:17→20:44)
[2021-07-28] MEDS: ASPIRIN EC 81 MG TAB PO SCH (09:25)
[2021-07-28] MEDS: ZINC SULFATE 220 MG CAP PO SCH (09:25)
[2021-07-28] MEDS: BENZONATATE 100 MG CAP PO PRN ×2 (09:44→20:44)
--- NOTE | 2021-07-28 13:23 | P.PN ---
Subjective Date of Service: 07/28/21 Primary Care Provider: Chris Grossman Chief Complaint: covid pneumonia Subjective: Improving (feels better this morning, no new complaints, feels breathing is more comfortable) Review of Systems 10-point ROS is otherwise unremarkable Physical Examination - Vital Signs Temperature: 97.7 F Blood Pressure: 110/56 Pulse: 83 Respirations: 16 Pulse Ox (%): 92 Assessment & Plan Physician Review Additional Text: Physical Exam General: Alert, In no apparent distress HEENT: normal conjunctiva, sclera anicteric Respiratory: Nonlabored respirations on 15 L nasal cannula CV: Regular rate and rhythm, no edema Gastrointestinal: Soft and benign, Non-distended Integumentary: No rashes Neurological: Normal strength at 5/5 x4 extr Problem list Acute hypoxemic respiratory failure secondary to COVID-19 pneumonia Paroxysmal atrial fibrillation Continue IV steroid, vitamin supplementation, zinc supplementation. Continue Baracitinib. Continue Xarelto. Pulmonary is following s/p regeneron / monoclonal antibody. Wean down oxygen as tolerated. Dispo: anticipate dc home in 3-4 days, with home O2 Time Spent Managing Pts Care (In Minutes): 35
[2021-07-28] MEDS: RIVAROXABAN 20 MG TABLET PO SCH (17:04)
[2021-07-28] MEDS: MELATONIN 5 MG TABLET PO PRN (20:44)
--- NOTE | 2021-07-29 06:15 | P.PN ---
Subjective Date of Service: 07/29/21 Primary Care Provider: Chris Grossman Chief Complaint: covid pneumonia Subjective: Improving (Oxygen requirement decreasing, patient reports feeling better, breathing more comfortably) Review of Systems 10-point ROS is otherwise unremarkable Physical Examination - Vital Signs Temperature: 97.0 F Blood Pressure: 138/66 Pulse: 60 Respirations: 18 Pulse Ox (%): 96 Assessment & Plan Physician Review Additional Text: Physical Exam General: Alert, In no apparent distress HEENT: normal conjunctiva, sclera anicteric Respiratory: Nonlabored respirations on 10 L nasal cannula CV: Regular rate and rhythm, no edema Gastrointestinal: Soft and benign, Non-distended Integumentary: No rashes Neurological: Normal strength at 5/5 x4 extr Problem list Acute hypoxemic respiratory failure secondary to COVID-19 pneumonia Paroxysmal atrial fibrillation Continue IV steroid, vitamin supplementation, zinc supplementation. Continue Baracitinib. Continue Xarelto. Pulmonary is following s/p regeneron / monoclonal antibody. Wean down oxygen as tolerated. Dispo: anticipate dc home in 2-3 days, with home O2 Time Spent Managing Pts Care (In Minutes): 35
[2021-07-29 06:44] LABS: Magnesium 2.7 mg/dL (1.8-2.4); Phosphorus 4.4 mg/dL (2.5-4.9)
[2021-07-29] MEDS: ASPIRIN EC 81 MG TAB PO SCH (08:12)
[2021-07-29] MEDS: VITAMIN D 1000 UNIT TAB PO SCH (08:12)
[2021-07-29] MEDS: FENOFIBRATE 160 MG TAB PO SCH (08:12)
[2021-07-29] MEDS: FAMOTIDINE 20 MG TAB PO SCH ×2 (08:12→20:00)
[2021-07-29] MEDS: ASCORBIC ACID 500 MG TABLET PO SCH ×4 (08:13→20:01)
[2021-07-29] MEDS: BARICITINIB 2 MG TABLET PO SCH (08:13)
[2021-07-29] MEDS: ZINC SULFATE 220 MG CAP PO SCH (08:13)
[2021-07-29] MEDS: METHYLPREDNISOLONE 125 MG INJ IV SCH ×2 (08:13→20:01)
[2021-07-29] MEDS: THIAMINE HCL 100 MG TABLET PO SCH (08:13)
[2021-07-29] MEDS: ENSURE ENLIVE 237 ML CAN PO SCH ×2 (08:14→21:30)
[2021-07-29] MEDS: DOCUSATE NA 100 MG CAP PO SCH ×2 (09:49→20:00)
[2021-07-29] MEDS: RIVAROXABAN 20 MG TABLET PO SCH (16:32)
[2021-07-29] MEDS: BENZONATATE 100 MG CAP PO PRN (20:00)
[2021-07-29] MEDS: MELATONIN 5 MG TABLET PO PRN (20:00)
[2021-07-30 03:40] LABS: Absolute Lymphocytes (CBC) 0.6 K/uL (0.7-4.9); Basophils % 0.2 % (0-1.3); Hematocrit 35.9 % (39.6-49.0); Lymphocytes % 4.2 % (15.3-44.8); MPV 9.4 fL (7.6-11.3); RBC Red Blood Cell Count 3.93 M/uL (4.33-5.43)
[2021-07-30 03:51] LABS: BUN Blood Urea Nitrogen 40 mg/dL (7-18); Bicarbonate 29 mmol/L (21-32); Glucose Level 140 mg/dL (74-106); Potassium 5.4 mmol/L (3.5-5.1); Sodium Level 137 mmol/L (136-145)
[2021-07-30 05:09] LABS: Blood Morphology Comment NOT SEEN (NOT SEEN); Platelet Estimate ADEQ
--- NOTE | 2021-07-30 06:12 | P.PN ---
Subjective Date of Service: 07/30/21 Primary Care Provider: Chris Grossman Chief Complaint: covid pneumonia Subjective: Improving (Feeling better today, good appetite, urinating without issue, down to 8 L nasal cannula) Review of Systems 10-point ROS is otherwise unremarkable Physical Examination - Vital Signs Temperature: 98.7 F Blood Pressure: 127/61 Pulse: 78 Respirations: 18 Pulse Ox (%): 90 Assessment & Plan Physician Review Additional Text: Physical Exam General: Alert, In no apparent distress HEENT: normal conjunctiva, sclera anicteric Respiratory: Nonlabored respirations on 8 L nasal cannula CV: Regular rate and rhythm, no edema Gastrointestinal: Soft and benign, Non-distended Problem list Acute hypoxemic respiratory failure secondary to COVID-19 pneumonia Paroxysmal atrial fibrillation Continue steroid, vitamin supplementation, zinc supplementation. Continue Baracitinib. Continue Xarelto. Pulmonary is following s/p regeneron / monoclonal antibody. Wean down oxygen as tolerated. Dispo: anticipate dc home in 2-3 days, with home O2 Time Spent Managing Pts Care (In Minutes): 40
[2021-07-30] MEDS: ENSURE ENLIVE 237 ML CAN PO SCH ×2 (09:00→19:53)
[2021-07-30] MEDS: VITAMIN D 1000 UNIT TAB PO SCH (09:31)
[2021-07-30] MEDS: FENOFIBRATE 160 MG TAB PO SCH (09:31)
[2021-07-30] MEDS: ASPIRIN EC 81 MG TAB PO SCH (09:31)
[2021-07-30] MEDS: BARICITINIB 2 MG TABLET PO SCH (09:31)
[2021-07-30] MEDS: METHYLPREDNISOLONE 125 MG INJ IV SCH ×2 (09:32→19:42)
[2021-07-30] MEDS: DOCUSATE NA 100 MG CAP PO SCH ×2 (09:32→19:41)
[2021-07-30] MEDS: FAMOTIDINE 20 MG TAB PO SCH ×2 (09:32→19:42)
[2021-07-30] MEDS: ASCORBIC ACID 500 MG TABLET PO SCH ×4 (09:32→19:41)
[2021-07-30] MEDS: THIAMINE HCL 100 MG TABLET PO SCH (09:32)
[2021-07-30] MEDS: ZINC SULFATE 220 MG CAP PO SCH (09:33)
[2021-07-30] MEDS: RIVAROXABAN 20 MG TABLET PO SCH (16:39)
[2021-07-30] MEDS: MELATONIN 5 MG TABLET PO PRN (19:42)
[2021-07-30] MEDS: BENZONATATE 100 MG CAP PO PRN (19:50)
[2021-07-31 06:31] LABS: Magnesium 2.7 mg/dL (1.8-2.4); Potassium 5.3 mmol/L (3.5-5.1)
[2021-07-31] MEDS: BARICITINIB 2 MG TABLET PO SCH (08:50)
[2021-07-31] MEDS: ASPIRIN EC 81 MG TAB PO SCH (08:50)
[2021-07-31] MEDS: METHYLPREDNISOLONE 125 MG INJ IV SCH ×2 (08:50→19:39)
[2021-07-31] MEDS: FENOFIBRATE 160 MG TAB PO SCH (08:51)
[2021-07-31] MEDS: THIAMINE HCL 100 MG TABLET PO SCH (08:51)
[2021-07-31] MEDS: FAMOTIDINE 20 MG TAB PO SCH ×2 (08:51→19:38)
[2021-07-31] MEDS: ASCORBIC ACID 500 MG TABLET PO SCH ×4 (08:51→19:38)
[2021-07-31] MEDS: ZINC SULFATE 220 MG CAP PO SCH (08:51)
[2021-07-31] MEDS: VITAMIN D 1000 UNIT TAB PO SCH (08:51)
[2021-07-31] MEDS: DOCUSATE NA 100 MG CAP PO SCH ×2 (08:51→19:38)
[2021-07-31] MEDS: ENSURE ENLIVE 237 ML CAN PO SCH ×2 (09:00→19:39)
--- NOTE | 2021-07-31 14:34 | P.PN ---
Subjective Date of Service: 07/31/21 Primary Care Provider: Chris Grossman Chief Complaint: covid pneumonia Subjective: Improving (Feeling better, good appetite, oxygen down to 5 L nasal cannula.) Review of Systems 10-point ROS is otherwise unremarkable Physical Examination - Vital Signs Temperature: 96.9 F Blood Pressure: 130/74 Pulse: 85 Respirations: 24 Pulse Ox (%): 94 Assessment & Plan Physician Review Additional Text: Physical Exam General: Alert, In no apparent distress HEENT: normal conjunctiva, sclera anicteric Respiratory: Nonlabored respirations on 5 L nasal cannula CV: Regular rate and rhythm, no edema Gastrointestinal: Soft and benign, Non-distended Problem list Acute hypoxemic respiratory failure secondary to COVID-19 pneumonia Paroxysmal atrial fibrillation Continue steroid, vitamin supplementation, zinc supplementation. Continue Baracitinib. Continue Xarelto. Pulmonary is following s/p regeneron / monoclonal antibody. Wean down oxygen as tolerated. Dispo: anticipate dc home in 1-2 days, with home O2 Time Spent Managing Pts Care (In Minutes): 40
[2021-07-31] MEDS: RIVAROXABAN 20 MG TABLET PO SCH (16:43)
[2021-07-31] MEDS: MELATONIN 5 MG TABLET PO PRN (19:37)
[2021-07-31] MEDS: BENZONATATE 100 MG CAP PO PRN (19:38)
[2021-08-01 06:55] LABS: BUN Blood Urea Nitrogen 38 mg/dL (7-18); Bicarbonate 30 mmol/L (21-32); Glucose Level 109 mg/dL (74-106); Sodium Level 137 mmol/L (136-145)
[2021-08-01] MEDS: ASPIRIN EC 81 MG TAB PO SCH (08:42)
[2021-08-01] MEDS: THIAMINE HCL 100 MG TABLET PO SCH (08:42)
[2021-08-01] MEDS: VITAMIN D 1000 UNIT TAB PO SCH (08:42)
[2021-08-01] MEDS: METHYLPREDNISOLONE 125 MG INJ IV SCH (08:43)
[2021-08-01] MEDS: ZINC SULFATE 220 MG CAP PO SCH (08:43)
[2021-08-01] MEDS: FENOFIBRATE 160 MG TAB PO SCH (08:43)
[2021-08-01] MEDS: FAMOTIDINE 20 MG TAB PO SCH (08:43)
[2021-08-01] MEDS: ASCORBIC ACID 500 MG TABLET PO SCH ×2 (08:43→12:30)
[2021-08-01] MEDS: DOCUSATE NA 100 MG CAP PO SCH (08:43)
[2021-08-01] MEDS: BARICITINIB 2 MG TABLET PO SCH (08:52)
[2021-08-01] MEDS: ENSURE ENLIVE 237 ML CAN PO SCH (08:53)
[2021-08-01 12:11] VITALS: BP 106/53; TEMP 97.3
[2021-08-01 12:51] VITALS: O2SAT 92
--- NOTE | 2021-08-01 16:30 | P.DS ---
Admission Date: 07/20/21 Discharge Date: 08/01/21 Primary Care Provider: Chris Grossman Disposition: ROUTINE DISCHARGE Discharge Condition: GOOD Reason for Admission: covid pneumonia Consultations: Pulmonology - Dr. Huang Procedures: CXR (07/20): FINDINGS: Patchy interstitial and alveolar opacities are present throughout both lung mcclellan. Baseline presentation for the patient is unknown. COVID testing results are not known. It bilateral COVID-19 pneumonia would be a primary consideration given the lung parenchymal findings and the current clinical environment. Non COVID viral pneumonia or organizing pneumonia would be possible. An atypical CHF/volume overload pattern is possible as well. Sternotomy wires are in place. Heart and vasculature are normal. No measurable pleural effusion and no pneumothorax. No acute bony abnormality seen. No acute aortic findings suspected. IMPRESSION: Baseline chest examination showing scattered interstitial and alveolar opacities of the lung parenchyma. Bilateral COVID-19 pneumonia would be a primary consideration in the current clinical environment. COVID testing results are not available at the time of this dictation. CXR (07/25): Moderate bilateral pulmonary opacities are present, mildly progressive since 07/20/2021. The heart is normal in size. No displaced fractures. IMPRESSION: Bilateral pulmonary opacities have mildly to moderately worsened, especially on the left, since 07/20/2021. CXR (07/26): FINDINGS: Mild worsening bilateral pulmonary opacities more marked on the left. Heart remains enlarged. Post surgical changes involve chest IMPRESSION: Mild worsening in bilateral pulmonary opacities more marked on the left likely pneumonia CXR (07/27): FINDINGS: Bilateral lung parenchymal disease is present not substantially different from comparison. No further progression is identified. Trachea is midline. Sternotomy wires are in place. Heart and vasculature are normal. No measurable pleural effusion and no pneumothorax. IMPRESSION: Stable bilateral lung parenchymal disease compared July 26 imaging. No further progression. Problem list Acute hypoxemic respiratory failure secondary to COVID-19 pneumonia h/o heart valve replacement h/o basal cell carcinoma Brief History of Present Illness: 71 yo M with history of cardiac valve replacement who presents with COVID+ diagnosis on and symptoms of COVID beginning Tuesday before last. He has received Regeneron and 2 doses of remdesmivir thus far. He came to the ED today because his pulse ox level read in the 60s. On arrival, RA sats were in the 60s as well, now stable on HFNC. He says his symptoms have continued to worsen. Reports nonproductive cough, fatigue, fever, diarrhea, poor appetite. Denies wheezing, pleuritic pain, and nausea/vomiting. Fluid intake has been good. He is a former smoker. Ddimer 934. Ferritin 1090. CRP 104. Hospital Course: Patient had improvement of his symptoms with treatment consistent of Baracitinab, steroids, vitamin supplementation, and oxygen supplementation. He is discharged home to continue treatment with steroids and oxygen supplementation. On day of discharge he was stable on <4L NC for over 24hrs. To follow up with Dr. Huang in ~ 1 week. Vital Signs/Physical Exam: Physical Exam General: Alert, In no apparent distress HEENT: normal conjunctiva, sclera anicteric Respiratory: Nonlabored respirations on 3.5 L nasal cannula CV: Regular rate and rhythm, no edema Gastrointestinal: Soft and benign, Non-distended Temp Pulse Resp BP Pulse Ox 97.3 F 77 18 106/53 L 91 08/01/21 12:00 08/01/21 12:00 08/01/21 12:00 08/01/21 12:00 08/01/21 12:00 Laboratory Data at Discharge: WBC 13.70 K/uL (4.3-10.9) H 07/30/21 03:07 Hgb 12.1 g/dL (13.6-17.9) L 07/30/21 03:07 Hct 35.9 % (39.6-49.0) L 07/30/21 03:07 Plt Count 204 K/uL (152-406) 07/30/21 03:07 PT 14.5 SECONDS (9.5-12.5) H 07/20/21 21:00 INR 1.26 07/20/21 21:00 APTT 25.6 SECONDS (24.3-36.9) 07/20/21 21:00 Sodium 137 mmol/L (136-145) 08/01/21 05:58 Potassium 5.0 mmol/L (3.5-5.1) 08/01/21 05:58 BUN 38 mg/dL (7-18) H 08/01/21 05:58 Creatinine 0.79 mg/dL (0.55-1.3) 08/01/21 05:58 Glucose 109 mg/dL (74-106) H 08/01/21 05:58 Phosphorus 4.4 mg/dL (2.5-4.9) 07/29/21 06:10 Magnesium 2.7 mg/dL (1.8-2.4) H 07/31/21 05:46 Total Bilirubin 0.6 mg/dL (0.2-1.0) 07/21/21 02:37 AST 57 U/L (15-37) H 07/21/21 02:37 ALT 32 U/L (12-78) 07/21/21 02:37 Alkaline Phosphatase 42 U/L (45-117) L 07/21/21 02:37 Lipase 51 U/L (73-393) L 07/20/21 21:00 Home Medications: Aspirin 81 mg PO DAILY 07/21/21 Ascorbic Acid [Vitamin C*] 500 mg PO QID 30 Days #120 tablet 08/01/21 Benzonatate [Tessalon Perle*] 100 mg PO TID PRN 5 Days #15 cap 08/01/21 Cholecalciferol (Vitamin D3) [Vitamin D 1000 Iu Tab*] 4,000 unit PO DAILY 30 Days #120 tab 08/01/21 predniSONE [Prednisone*] 20 mg PO SEECOM 14 Days #21 tab 08/01/21 New Medications: predniSONE [Prednisone*] 20 mg PO SEECOM 14 Days #21 tab Benzonatate [Tessalon Perle*] 100 mg PO TID PRN 5 Days #15 cap PRN Reason: Cough Ascorbic Acid [Vitamin C*] 500 mg PO QID 30 Days #120 tablet Cholecalciferol (Vitamin D3) [Vitamin D 1000 Iu Tab*] 4,000 unit PO DAILY 30 Days #120 tab Physician Discharge Instructions: You were found to have COVID-19 pneumonia. You had improvement with steroids, vitamin supplementation, and oxygen supplementation. You are discharged home to continue with this treatment. Continue taking aspirin 81 mg daily. Follow up with Dr. Huang ([facility]) in ~1 week. Call his office to schedule the appointment. Diet: Regular Activity: Ad amy Followup: Jamaal Huang MD [ACTIVE - CAN ADMIT] - NONE,NONE [Primary Care Provider] - Time spent managing pt's care (in minutes): 45
== END 2021-08-01 17:11 | disposition home or self-care (01) | DRG 177 ==
LOC: ER 19:24 → ERHOLD 23:40 → 3RD-ICU 07-23 18:22 → 4TH 07-28 05:15
PROVIDERS: ADMIT Internal Medicine; ATTEND Internal Medicine
PROC: 5A09457 Assistance with Respiratory Ventilation, 24-96 Consecutive Hours, Continuous Positive Airway Pressure (ICD-10-PCS; principal; 2021-07-22)
DX: U07.1 COVID-19 (principal); J12.82 Pneumonia due to coronavirus disease 2019; J96.01 Acute respiratory failure with hypoxia; Z95.2 Presence of prosthetic heart valve; Z85.828 Personal history of other malignant neoplasm of skin; I48.0 Paroxysmal atrial fibrillation; Z87.891 Personal history of nicotine dependence
CPT/HCPCS: 0240U; 36415; 71045; 80048; 80053; 80076; 81003; 81015; 82728; 83605; 83690; 83735; 84100; 84145; 84484; 85025; 85379; 85610; 85730; 86140; 87040; 87070; 87081; 93005; 94003; 94660; 94760; 96361; 96374; 97116; 97161; 99285; J1720; J1940; J2920; J2930; J7040

== ENCOUNTER 2021-09-05 07:06 | Emergency (ER) | payer OTHER ==
[2021-09-05] MEDS ORDERED: NA CHLORIDE 0.9% 2,000 ML ONE (08:03)
[2021-09-05 08:21] LABS: ALT/SGPT 45 U/L (12-78); AST/SGOT 29 U/L (15-37); Albumin 2.3 g/dL (3.4-5.0); Alkaline Phosphatase 67 U/L (45-117); BUN Blood Urea Nitrogen 11 mg/dL (7-18); Bicarbonate 23 mmol/L (21-32); Bilirubin Direct 0.3 mg/dL (0-0.2); Bilirubin Total 0.6 mg/dL (0.2-1.0); Glucose Level 113 mg/dL (74-106); Lipase 116 U/L (73-393); Potassium 3.4 mmol/L (3.5-5.1); Protein, Total 6.5 g/dL (6.4-8.2); Sodium Level 137 mmol/L (136-145)
[2021-09-05 08:23] LABS: Troponin (Emerg Dept Use Only) 0.73 ng/mL (0.0-0.045)
[2021-09-05 08:26] LABS: Protime INR 1.42
[2021-09-05 08:30] LABS: Absolute Lymphocytes (CBC) 0.6 K/uL (0.7-4.9); Basophils % 0.5 % (0-1.3); Hematocrit 27.5 % (39.6-49.0); Lymphocytes % 3.7 % (15.3-44.8); MPV 8.5 fL (7.6-11.3); RBC Red Blood Cell Count 3.09 M/uL (4.33-5.43)
[2021-09-05 09:07] LABS: Platelet Estimate ADEQ
[2021-09-05 09:08] LABS: Blood Morphology Comment NOT SEEN (NOT SEEN)
[2021-09-05 09:21] LABS: Urine Blood Negative (Negative); Urine Glucose Negative (Negative); Urine Protein Negative (Negative)
--- NOTE | 2021-09-05 09:32 | RAD REPORT ---
EXAM DESCRIPTION: CT - Chest For Pe Angio - 09/05/2021 8:55 am CLINICAL HISTORY: Chest pain. recent covid, tachycardic, eval for PE COMPARISON: No comparisons TECHNIQUE: CT angiogram of the pulmonary arteries was performed with MIP. All CT scans are performed using dose optimization technique as appropriate and may include automated exposure control or mA/KV adjustment according to patient size. FINDINGS: No evidence of pulmonary thromboembolism. No acute aortic finding demonstrated. Emphysema is present with mild peripherally oriented interstitial lung opacities present No significant pericardial or pleural fluid. No concerning bony finding. Sternotomy wires. IMPRESSION: No evidence of pulmonary thromboembolism. Emphysematous changes with mild interstitial lung opacities peripherally likely representing COVID in fection.
--- NOTE | 2021-09-05 09:35 | RAD REPORT ---
EXAM DESCRIPTION: CTAbdomen Pelvis W Contrast - 09/05/2021 8:54 am CLINICAL HISTORY: Abdominal pain. fever, hypotensive, recent UTI COMPARISON: No comparisons TECHNIQUE: Biphasic CT imaging of the abdomen and pelvis was performed with 100 ml non-ionic IV cont rast. All CT scans are performed using dose optimization technique as appropriate and may include automated exposure control or mA/KV adjustment according to patient size. FINDINGS: Mild peripheral interstitial lung opacities are seen the lung bases. The liver contains several low-density lesions likely presenting benign cysts. No aggressive liver [place] or biliary dilatation. The spleen, pancreas, adrenal glands are normal. Left renal cysts are pre sent, benign. Right kidney appears normal. No bowel obstruction, free air, free fluid or abscess. Mild sigmoid diverticulosis is present without diverticulitis. The appendix is normal. No evidence of significant lymphadenopathy. No suspicious bony findings. IMPRESSION: No acute intra-abdominal or pelvic finding. Benign hepatic and renal cysts.
[2021-09-05] MEDS ORDERED: CEFTRIAXONE 1000 MG/VIAL ONE (09:42)
[2021-09-05] MEDS ORDERED: NA CHLORIDE 0.9% 1,000 ML ONE (09:42)
--- NOTE | 2021-09-05 09:44 | RAD REPORT ---
EXAM DESCRIPTION: RAD - Chest Single View - 09/05/2021 7:49 am CLINICAL HISTORY: palpitations, fever Chest pain. COMPARISON: Chest Pa And Lat (2 Views) dated 08/31/2021; Chest Single View dated 07/27/2021; Chest Sin gle View dated 07/26/2021; Chest Single View dated 07/25/2021 FINDINGS: Portable technique limits examination quality. Mild bilateral interstitial lung opacities are present. This may represent mild viral infection/ bron chitis. The heart is upper limit normal in size. Sternotomy wires present.
[2021-09-05] MEDS ORDERED: ASPIRIN 81 MG CHEWABLE TABLET ONE (10:03)
[2021-09-05 10:29] LABS: Urine Bacteria <20 /HPF (NONE SEEN); Urine Mucus SLIGHT /HPF (NONE SEEN); Urine RBC <5 /HPF (NONE SEEN)
[2021-09-05] MEDS ORDERED: HYDROCORTISONE SUC 100 MG INJ ONE (11:06)
--- NOTE | 2021-09-05 12:54 | EDPHYS ---
Physician Documentation [facility] Name: Roderick Dominguez Age: 71 yrs Sex: Male : 1950 Arrival Date: 09/05/2021 Time: 07:10 Bed 5 Private MD: ED Physician Rojas Wood HPI: 09/05 07:35 This 71 yrs old Male presents to ER via Ambulatory with complaints of Fast HR.rn 07:35 The patient presents with a history of irregular heart beat, heart racing. Context: The rn symptoms occur at rest. Onset: The symptoms/episode began/occurred 5 day(s) ago. Duration: The patient or guardian reports multiple episodes, that are intermittent. Modifying factors: The symptoms are aggravated by nothing. The symptoms are alleviated by nothing. Associated signs and symptoms: Pertinent positives: fever, Pertinent negatives: chest pain, SOB, syncope, vertigo, vomiting. Severity of symptoms: At their worst the symptoms were moderate in the emergency department the symptoms have improved. The patient has experienced similar episodes in the past. The patient has been recently seen by a physician: The patient has been recently been admitted at [facility]. Patient reports palpitations for the last few days, not going away, has a history of A. fib that was cardioverted in the past and has not had any other issues since then. Reports recent admission for Covid and was discharged this past week. Still feels weak but generally improved. reports on and off fever for the last week and just finished Cipro for possible UTI. Denies chest pain or shortness of breath. No abdominal pain/vomiting/diarrhea. Historical: - Allergies: 07:19 No Known Allergies; ea - PMHx: 07:19 Atrial fibrillation; Cardioversion- for A-fib; ea - PSHx: 07:19 Mitral valve replacement; ea - Immunization history:: Client reports having NOT received the Covid vaccine. Flu vaccine status is unknown. - Social history:: Smoking status: Patient/guardian denies using tobacco, the patient reports quitting approximately 13 years ago. - Family history:: not pertinent. - Hospitalizations: : No recent hospitalization is reported. ROS: 07:35 Constitutional: Positive for fever and chills Eyes: Negative for injury, pain, redness, rn and discharge, Neck: Negative for injury, pain, and swelling, Cardiovascular: Negative for chest pain, and edema, Respiratory: Negative for shortness of breath, cough, wheezing, and pleuritic chest pain, Abdomen/GI: Negative for abdominal pain, nausea, vomiting, diarrhea, and constipation, Back: Negative for injury and pain, MS/Extremity: Negative for injury and deformity, Skin: Negative for injury, rash, and discoloration, Neuro: Negative for headache, numbness, tingling, and seizure. 07:35 All other systems are negative. Exam: 07:35 Constitutional: This is a well developed, well nourished patient who is awake, alert, rn and in no acute distress. Head/Face: Normocephalic, atraumatic. Eyes: Periorbital areas with no swelling, redness, or edema. Cardiovascular: Tachycardic, regular. No pulse deficits Respiratory: No increased work of breathing, no retractions or nasal flaring. Abdomen/GI: Soft, non-tender Skin: Warm, dry MS/ Extremity: Pulses equal, no cyanosis. Neuro: Awake and alert, GCS 15, oriented to person, place, time, and situation. Cranial nerves II-XII grossly intact. Motor strength 5/5 in all extremities. Sensory grossly intact. 08:09 ECG was reviewed by the Attending Physician. rn Vital Signs: 07:19 BP 77 / 61; Pulse 122; Resp 18; Temp 98.2(O); Weight 90.72 kg; Height 6 ft. 0 in. ea (182.88 cm); Pain 0/10; 08:00 BP 75 / 60; Pulse 106; Resp 12; sv 09:00 BP 94 / 65; Pulse 108; Pulse Ox 98% ; hb 10:19 BP 103 / 64; Pulse 95; Resp 16; Pulse Ox 100% on R/A; hb 11:30 BP 102 / 65; Pulse 95; Resp 16; Pulse Ox 98% ; hb 12:08 BP 108 / 68; Pulse 95; Resp 19; Pulse Ox 97% on R/A; hb 13:46 BP 112 / 75; Pulse 88; Resp 17; Pulse Ox 97% on R/A; hb 07:19 Body Mass Index 27.12 (90.72 kg, 182.88 cm) ea MDM: 07:15 Patient medically screened. rn 11:03 Differential diagnosis: arrythmia, dehydration, stress disorder, Urinary infection, rn pneumonia, endocarditis, adrenal insufficiency, dehydration, sepsis. Data reviewed: vital signs, nurses notes, lab test result(s), EKG, radiologic studies, CT scan, plain films, and as a result, I will admit patient. Data interpreted: sales and marketing vice president: rate is 95 beats/min, rhythm is normal sinus rhythm, regular, with no ectopy, Interpretation: normal rate, normal rhythm, Pulse oximetry: on room air is 100 %. Interpretation: normal. Test interpretation: by ED physician or midlevel provider: ECG, plain radiologic studies, Chest x-ray negative for gross pneumonia or pneumothorax. Counseling: I had a detailed discussion with the patient and/or guardian regarding: the historical points, exam findings, and any diagnostic results supporting the discharge/admit diagnosis, lab results, radiology results, the need for outpatient follow up, to return to the emergency department if symptoms worsen or persist or if there are any questions or concerns that arise at home. Response to treatment: the patient's symptoms have markedly improved after treatment, and as a result, I will admit patient. ED course: Consulted with Dr. Bosch, will transfer patient given positive Hemoccult and drop in hemoglobin and possible GI bleed, could be related to recent admission. Patient's blood pressure has improved after fluids and hydrocortisone administration. There is also concern given intermittent fevers for a week that may have endocarditis given porcine mitral valve. Awaiting for [facility] to call back for hospitalist admission for further evaluation and cardiology and GI consultation.. 12:51 Admission orders: after a detailed discussion of the patient's condition and case, the internet marketer orders are written by me. ED course: Pt improved, BP now 109/71, HR 91, pt feels much better. Accepted for transfer to [facility]. . 09/05 07:24 Order name: Basic Metabolic Panel rn 09/05 07:24 Order name: Blood Culture Adult (2) rn 09/05 07:24 Order name: CBC with Diff; Complete Time: 09:23 rn 09/05 07:24 Order name: LFT's; Complete Time: 08:54 rn 09/05 07:24 Order name: Lactate; Complete Time: 08:54 rn 09/05 07:24 Order name: Lipase; Complete Time: 08:54 rn 09/05 07:24 Order name: Procalcitonin; Complete Time: :54 rn 09/05 07:24 Order name: Protime (+inr); Complete Time: 08:54 rn 09/05 07:24 Order name: Ptt, Activated; Complete Time: 08:54 rn 09/05 07:24 Order name: Troponin (emerg Dept Use Only); Complete Time: 08:54 rn 09/05 07:24 Order name: Urine Culture rn 09/05 07:24 Order name: Urine Microscopic Only; Complete Time: 10:35 rn 09/05 07:25 Order name: Basic Metabolic Panel; Complete Time: 08:54 EDMS 09/05 09:07 Order name: Manual Differential; Complete Time: 09:23 EDMS 09/05 07:24 Order name: Chest Single View XRAY; Complete Time: 09:45 rn 09/05 07:38 Order name: CT Chest For PE Angio; Complete Time: 09:35 rn 09/05 07:38 Order name: CT Abd/Pelvis - IV Contrast Only; Complete Time: 09:35 rn 09/05 09:21 Order name: Urine Dipstick-Ancillary; Complete Time: 09:23 EDMS 09/05 09:49 Order name: Cortisol EDMS 09/05 09:49 Order name: ACTH Baseline EDMS 09/05 09:53 Order name: Guiac hb 09/05 10:20 Order name: SARS-COV-2 RT PCR; Complete Time: 11:44 EDMS 09/05 07:24 Order name: Accucheck; Complete Time: 07:41 rn 09/05 07:24 Order name: Cardiac monitoring; Complete Time: 07:41 rn 09/05 07:24 Order name: EKG - Nurse/Tech; Complete Time: 10:20 rn 09/05 07:24 Order name: IV Saline Lock - Large Bore; Complete Time: 07:41 rn 09/05 07:24 Order name: Labs collected and sent; Complete Time: 07:41 rn 09/05 07:24 Order name: O2 Per Protocol; Complete Time: 07:41 rn 09/05 07:24 Order name: O2 Sat Monitoring; Complete Time: 07:41 rn 09/05 07:24 Order name: Urine Dipstick-Ancillary (obtain specimen); Complete Time: 10:19 rn EC:09 Rate is 106 beats/min. Rhythm is regular. QRS [place] is Normal. [place] interval is normal. rn QRS interval is normal. QT interval is normal. No Q waves. T waves are Normal. No ST changes noted. Clinical impression: Sinus tachycardia. Interpreted by me. Reviewed by me. Administered Medications: 07:41 Drug: NS 0.9% 1000 ml Route: IV; Rate: 1000 ml; Site: left antecubital; hb 08:40 Follow up: IV Status: Completed infusion; IV Intake: 1000ml hb 07:41 Drug: NS 0.9% 1000 ml Route: IV; Rate: 1000 ml; Site: left antecubital; hb 08:40 Follow up: Response: No adverse reaction; IV Status: Completed infusion; IV Intake: hb 1000ml 09:25 Drug: Rocephin (cefTRIAXone) 1 grams Route: IV; Rate: calculated rate; Site: left hb forearm; 09:35 Follow up: IV Status: Completed infusion; IV Intake: 10ml hb 09:25 Drug: NS 0.9% 1000 ml Route: IV; Rate: 1000 ml; Site: left forearm; hb 10:35 Follow up: Response: No adverse reaction; IV Status: Completed infusion; IV Intake: hb 1000ml 09:36 CANCELLED (Duplicate Order): NS 0.9% 1000 ml IV at 1000 ml once ss 10:36 Not Given (GI bleedd): Aspirin Chewable Tablet 324 mg PO once; 81 mg tablets x 4 rn 11:00 Drug: HydroCORTISONE 100 mg Route: IVP; Site: left forearm; hb 13:40 Follow up: Response: No adverse reaction hb Point of Care Testing: Guaiac: 09:51 Stool Guaiac: Positive; Stool Hemoccult Control: Pass; rn Disposition Summary: 09/05/21 12:53 Transfer Ordered Transfer Location: [facility] rn Reason: Higher level of care rn Condition: Stable rn Problem: new rn Symptoms: have improved rn Accepting Physician: Dr. Nunes(09/05/21 13:50) hb Diagnosis - Hypotension, unspecified rn - Tachycardia, unspecified rn - Sepsis, unspecified organism rn - Fever, unspecified rn - Anemia, unspecified photo mask pattern generator Instructions: - Discharge Summary Sheet hb Forms: - Medication Reconciliation Form rn - SBAR form hb Critical care time excluding procedures: 12:51 Critical care time: Bedside Care: 35 minutes, Consultation: 5 minutes. Total time: 40 rn minutes Signatures: Dispatcher [employer] EDMS Rojas Wood MD MD rn Baxter, Heather, RN RN hb Antunez, Elena, RN RN ea Smirch, Shelby RN ss Corrections: (The following items were deleted from the chart) 09:36 09:35 NS 0.9% 1000 ml IV at 1000 ml once ordered. rn ss 10:19 09:17 CORONAVIRUS+.BARRONZ ordered. EDMS EDMS 13:50 12:53 Dr. Manju kate
--- NOTE | 2021-09-05 12:54 | ER ---
Nurse's Notes [facility] Name: Roderick Dominguez Age: 71 yrs Sex: Male : 1950 Arrival Date: 09/05/2021 Time: 07:10 Bed 5 Private MD: Diagnosis: Hypotension, unspecified;Tachycardia, unspecified;Sepsis, unspecified organism;Fever, unspecified;Anemia, unspecified Presentation: 09/05 07:19 Chief complaint: Patient states: Fast HR all morning 130-140's at home. Released from the [facility] 08/31 for covid pneumonia. Still weak, but feels better overall. Coronavirus screen: Vaccine status: Patient reports being unvaccinated. Client denies travel out of the [place] in the last 14 days. congestion, cough unrelated to allergies, Client presents with at least one sign or symptom that may indicate coronavirus-19. Standard/surgical mask placed on the client. Ebola Screen: Patient denies travel to an Ebola-affected area in the 21 days before illness onset. Initial Sepsis Screen: Does the patient meet any 2 criteria? Systolic BP < 90 mmHg. HR > 90 bpm. Yes Does the patient have a suspected source of infection? Yes: Productive cough/pneumonia. Risk Assessment: Do you want to hurt yourself or someone else? Patient reports no desire to harm self or others. Onset of symptoms was September 05, 2021. 07:19 Method Of Arrival: Ambulatory 07:19 Acuity: KEEGAN 2 ea Historical: - Allergies: 07:19 No Known Allergies; ea - PMHx: 07:19 Atrial fibrillation; Cardioversion- for A-fib; ea - PSHx: 07:19 Mitral valve replacement; ea - Immunization history:: Client reports having NOT received the Covid vaccine. Flu vaccine status is unknown. - Social history:: Smoking status: Patient/guardian denies using tobacco, the patient reports quitting approximately 13 years ago. - Family history:: not pertinent. - Hospitalizations: : No recent hospitalization is reported. Screenin:42 Abuse screen: Denies threats or abuse. Denies injuries from another. Nutritional hb screening: No deficits noted. Tuberculosis screening: No symptoms or risk factors identified. Fall Risk None identified. Assessment: 07:42 General: Appears in no apparent distress. Behavior is calm, cooperative. Pain: Denies hb pain. Neuro: Level of Consciousness is awake, alert, obeys commands. Cardiovascular: Patient's skin is warm and dry. Respiratory: Respiratory effort is even, unlabored, Respiratory pattern is regular, symmetrical. GI: No signs and/or symptoms were reported involving the gastrointestinal system. : No signs and/or symptoms were reported regarding the genitourinary system. EENT: No signs and/or symptoms were reported regarding the EENT system. Derm: Skin is pink, warm \T\ dry. Musculoskeletal: 09:01 Reassessment: Patient appears in no apparent distress at this time. Patient and/or hb family updated on plan of care and expected duration. Pain level reassessed. Patient is alert, oriented x 3, equal unlabored respirations, skin warm/dry/pink. 09:46 Reassessment: Dr. Wood at bedside for rectal exam. hb 09:51 Reassessment: Dr. Bosch at bedside. hb 10:19 Reassessment: Patient appears in no apparent distress at this time. Patient and/or hb family updated on plan of care and expected duration. Pain level reassessed. Patient is alert, oriented x 3, equal unlabored respirations, skin warm/dry/pink. 11:15 Reassessment: Patient appears in no apparent distress at this time. Patient and/or hb family updated on plan of care and expected duration. Pain level reassessed. Patient is alert, oriented x 3, equal unlabored respirations, skin warm/dry/pink. 12:08 Reassessment: Patient appears in no apparent distress at this time. hb 13:50 Reassessment: Patient appears in no apparent distress at this time. Patient and/or hb family updated on plan of care and expected duration. Pain level reassessed. Patient is alert, oriented x 3, equal unlabored respirations, skin warm/dry/pink. Vital Signs: 07:19 BP 77 / 61; Pulse 122; Resp 18; Temp 98.2(O); Weight 90.72 kg; Height 6 ft. 0 in. ea (182.88 cm); Pain 0/10; 08:00 BP 75 / 60; Pulse 106; Resp 12; sv 09:00 BP 94 / 65; Pulse 108; Pulse Ox 98% ; hb 10:19 BP 103 / 64; Pulse 95; Resp 16; Pulse Ox 100% on R/A; hb 11:30 BP 102 / 65; Pulse 95; Resp 16; Pulse Ox 98% ; hb 12:08 BP 108 / 68; Pulse 95; Resp 19; Pulse Ox 97% on R/A; hb 13:46 BP 112 / 75; Pulse 88; Resp 17; Pulse Ox 97% on R/A; hb 07:19 Body Mass Index 27.12 (90.72 kg, 182.88 cm) ea ED Course: 07:10 Patient arrived in ED. wm 07:15 Rojas Wood MD is Attending Physician. rn 07:19 Arm band placed on Patient placed in an exam room, on a stretcher. ea 07:21 Triage completed. ea 07:30 Inserted saline lock: 20 gauge in left forearm, using aseptic technique. Blood hb collected. 07:42 Patient has correct armband on for positive identification. Bed in low position. Call hb light in reach. 07:49 Chest Single View XRAY In Process Unspecified. EDMS 08:04 Basic Metabolic Panel Sent. sv 08:53 CT Abd/Pelvis - IV Contrast Only In Process Unspecified. EDMS 08:55 CT Chest For PE Angio In Process Unspecified. 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 hb 09:51 Alicia Parekh, RN is Primary Nurse. hb 10:55 initiated a transfer with Kevin Christianson from the [facility] Transfer center. eb 11:[address] Nunes the hospitalist security installation sales technician for [facility] with Dr. Wood for patient eb transfer consultation. 12:02 administrative approval given by Kevin Christianson/ patient has been accepted to [facility] rm 1427/ Dr. Jennifer Nunes has accepted the patient in transfer/ report to be called to [phone]. 13:50 Patient transferred, IV remains in place. hb Administered Medications: 07:41 Drug: NS 0.9% 1000 ml Route: IV; Rate: 1000 ml; Site: left antecubital; hb 08:40 Follow up: IV Status: Completed infusion; IV Intake: 1000ml hb 07:41 Drug: NS 0.9% 1000 ml Route: IV; Rate: 1000 ml; Site: left antecubital; hb 08:40 Follow up: Response: No adverse reaction; IV Status: Completed infusion; IV Intake: hb 1000ml 09:25 Drug: Rocephin (cefTRIAXone) 1 grams Route: IV; Rate: calculated rate; Site: left hb forearm; 09:35 Follow up: IV Status: Completed infusion; IV Intake: 10ml hb 09:25 Drug: NS 0.9% 1000 ml Route: IV; Rate: 1000 ml; Site: left forearm; hb 10:35 Follow up: Response: No adverse reaction; IV Status: Completed infusion; IV Intake: hb 1000ml 09:36 CANCELLED (Duplicate Order): NS 0.9% 1000 ml IV at 1000 ml once ss 10:36 Not Given (GI bleedd): Aspirin Chewable Tablet 324 mg PO once; 81 mg tablets x 4 rn 11:00 Drug: HydroCORTISONE 100 mg Route: IVP; Site: left forearm; hb 13:40 Follow up: Response: No adverse reaction hb Point of Care Testing: Guaiac: 09:51 Stool Guaiac: Positive; Stool Hemoccult Control: Pass; learning support assistant: 08:40 IV: 1000ml; Total: 1000ml. hb 08:40 IV: 1000ml; Total: 2000ml. hb 09:35 IV: 10ml; Total: 2010ml. hb 10:35 IV: 1000ml; Total: 3010ml. hb Output: 13:20 Urine: 600ml (Voided); Total: 600ml. tw2 Outcome: 12:53 ER care complete, transfer ordered by . rn 13:46 Transferred by ground EMS to [facility]. hb 13:46 Condition: stable 13:50 Patient left the ED. hb Addendum: 09/09/2021 09:11 Addendum: Culture Results: Positive blood culture. Phone call Attempt #1 Faxed culture s s report to [facility] GENARO Stoll RN. Signatures: Dispatcher [employer] Leydi Palomo RN Rojas Busch MD MD rn Smirch, Shelby, RN RN ss Baxter, Heather, RN RN hb Wise, Tara, RN RN tw2 Nelida Tamayo RN RN ea Botello, Elizabeth eb Marsh, Wendy
[2021-09-05 13:56] VITALS: TEMP 98.2
[2021-09-05 14:03] VITALS: O2SAT 97
[2021-09-05 14:04] VITALS: BP 112/75
--- NOTE | 2021-09-07 07:09 | EKG ---
Test Date: 2021-09-05 Test Time: 08:02:59 Public Safety Teacher: ZORAIDA MEASUREMENT RESULTS: Intervals: Rate: 106 VT: 168 QRSD: 98 QT: 356 QTc: 472 Spring: P: 39 VT: 168 QRS: -12 T: 34 INTERPRETIVE STATEMENTS: Sinus tachycardia Minimal voltage criteria for LVH, may be normal variant Borderline ECG Compared to ECG 07/20/2021 20:51:37 Left ventricular hypertrophy now present Sinus rhythm no longer present Electronically Signed On 09-07-21 07:04:57 CDT by Pedro Gomez
== END 2021-09-05 13:50 | disposition short-term general hospital (02) ==
LOC: ER 07:06
DX: A41.9 Sepsis, unspecified organism (principal); I95.9 Hypotension, unspecified; R00.0 Tachycardia, unspecified; D64.9 Anemia, unspecified; I48.91 Unspecified atrial fibrillation; Z20.822 Contact with and (suspected) exposure to COVID-19; Z95.4 Presence of other heart-valve replacement
CPT/HCPCS: 96361; 93005; 87040 ×2; 87088; 85025; 87086; 80048; 36415; 87205 ×4; 85610; 80076; 83605; 85730; 82272; 87077 ×2; 87186 ×2; 84484; 83690; 82533; 84145; 82024; 71275; 74177; 71045; 96375; 96374; 99285; U0003; Q9967; J7030 ×2; J1720; 81003; 81015